=== PATIENT | female | born 1960 | race Caucasian/White ===

== ENCOUNTER 2020-01-31 18:39 | Inpatient (IN) | payer SELFPAY ==
[~2020-01-31] VITALS: Ht 170.2 cm; Wt 91.4 kg
[~2020-01-31 18:39] MED LIST: AMIT25TA9 PO; ASPI-983 PO; CLON0.1T PO; FERR-84 PO; HYDR-34 PO; LISI10TA2 PO; MELO15TA39 PO; NF-ADDXR30 PO; ONDA8TAB13 PO; TRM50T PO; VENL150C98 PO
[2020-01-31] MEDS ORDERED: NS IV 1000 ML 1,000 ML IV STA (18:55)
--- NOTE | 2020-01-31 18:58 | ED Abdominal Pain ---
General Chief Complaint: Abdominal/GI Problems Stated Complaint: NAUSEA/VOMITING,LEFT FLANK/LUQ PAIN History of Present Illness Date Seen by Provider: Jan 31, 2020 Time Seen by Provider: 18:45 Initial Comments This patient is a 15-year-old female who presents to the [facility], nausea vomiting. Patient also states she has had 2 weeks of diarrhea. There have resolved and the vomiting started. Patient states she's had abdominal pain. The entire evaluation. Patient has been seen by her PCP nothing is helping. Medical violation treat as needed. Timing/Duration: Other Severity/Quality: Moderate (2 weeks) Location: [facility], Generalized Abdomen Allergies and Home Medications Allergies Coded Allergies: No Known Drug Allergies (Unverified , 05/12/19) Home Medications Amitriptyline HCl 25 Mg Tablet, 25 MG PO HS, (Reported) Aspirin 81 Mg Tablet.dr, 81 MG PO DAILY, (Reported) Clonidine HCl 0.1 Mg Tablet, 0.3 MG PO HS, (Reported) Dextroamphetamine/Amphetamine 30 Mg Cap.er.24h, 30 MG PO DAILY, (Reported) Ferrous Sulfate 325 Mg Tablet, 325 MG PO HS, (Reported) Hydrocodone Bit/Acetaminophen 1 Ea Tablet, 1 EA PO Q6HR PRN for PAIN-MODERATE Prescribed by: CLAUDIO CAMARGO on 05/13/19923 Lisinopril 10 Mg Tablet, 10 MG PO HS, (Reported) Meloxicam 15 Mg Tablet, 15 MG PO DAILY, (Reported) Ondansetron 8 Mg Tab.rapdis, 8 MG PO Q6H Prescribed by: CLAUDIO CAMARGO on 05/13/19923 Tramadol HCl 50 Mg Tablet, 100 MG PO TID PRN for PAIN-MODERATE, (Reported) Venlafaxine HCl 150 Mg Cap.er.24h, 300 MG PO DAILY, (Reported) HAS BEEN TAKING 2 (150MG) CAPSULES; ONLY WRITTEN FOR 1 DAILY Patient Home Medication List Home Medication List Reviewed: Yes Review of Systems Review of Systems Constitutional: No no symptoms reported; see HPI; No chills, No diaphoresis, No dizziness, No fever, No malaise, No weakness, No weight gain, No weight loss, No other EENTM: No No Symptoms Reported, No See HPI, No Blurred Vision, No Double Vision, No Eye Pain, No Eye Tearing, No Ear Drainage, No Ear Pain, No Mouth Pain, No Mouth Swelling, No Nose Congestion, No Nose Pain, No Throat Pain, No Throat Swelling, No Other Respiratory: Denies No Symptoms Reported, Denies See HPI, Denies Cough, Denies Orthopnea, Denies Shortness of Air, Denies SOA With Exertion, Denies SOA at Rest, Denies Stridor, Denies Wheezing, Denies Other Cardiovascular: Denies No Symptoms Reported, Denies See HPI, Denies Chest Pain, Denies Edema, Denies Irregular Heart Rate, Denies Lightheadedness, Denies Palpitations, Denies Syncope, Denies Other Gastrointestinal: Denies No Symptoms Reported; See HPI; Denies Abdomen Distended; Abdominal Pain; Denies Blood Streaked Stools, Denies Constipated; Diarrhea; Denies Difficulty Swallowing; Nausea; Denies Poor Appetite, Denies Poor Fluid Intake, Denies Rectal Bleeding; Vomiting; Denies Other Genitourinary: Denies No Symptoms Reported, Denies See HPI, Denies Burning, Denies Discharge, Denies Drainage, Denies Frequency, Denies Flank Pain, Denies Hematuria, Denies Incontinence, Denies Pain, Denies Urgency, Denies Other Musculoskeletal: No no symptoms reported, No see HPI, No back pain, No gout, No joint pain, No joint swelling, No muscle pain, No muscle stiffness, No muscle cramps, No muscle twitching, No muscle weakness, No neck pain, No other Skin: No no symptoms reported, No see HPI, No change in color, No change in hair/nails, No dryness, No hx of skin cancer, No lesions, No lumps, No pruritus, No rash, No other All Other Systems Reviewed Negative Unless Noted: Yes Past Wlyulje-Gaccpu-Ouiznk Hx Patient Social History Recent Hopitalizations: No Seasonal Allergies Seasonal Allergies: No Past Medical History Surgeries: Yes Appendectomy Respiratory: No Currently Using CPAP: No Currently Using BIPAP: No Cardiac: Yes Hypertension Neurological: Yes (PT. STATED SHE HAS WHITE MASS ON THE BRAIN) Genitourinary: No Gastrointestinal: No Musculoskeletal: Yes Arthritis Endocrine: No HEENT: No Cancer: No Psychosocial: No Anxiety, Bipolar Integumentary: No Blood Disorders: No Family Medical History Cancer, Hypertension Physical Exam Vital Signs Vital Signs - First Documented 01/31/20 18:54 Temp 36.3 Pulse 60 Resp 16 B/P (MAP) 144/73 (96) Pulse Ox 100 Capillary Refill : Height/Weight/BMI Height: '" Weight: lbs. oz. kg; 31.83 BMI Method: General Appearance: WD/WN, no apparent distress Respiratory: chest non-tender, lungs clear, normal breath sounds, no respiratory distress, no accessory muscle use Cardiovascular: normal peripheral pulses, regular rate, rhythm, no edema, no gallop, no JVD, no murmur Gastrointestinal: normal bowel sounds, non tender, soft, no organomegaly, no pulsatile mass Extremities: normal range of motion, non-tender, normal inspection, no pedal edema, no calf tenderness, normal capillary refill, pelvis stable Back: normal inspection, no CVA tenderness, no vertebral tenderness Skin: normal color, warm/dry Progress/Results/Core Measures Results/Orders Lab Results Laboratory Tests Test 01/31/20 19:00 01/31/20 19:17 Range/Units Urine Color PALE YELLOW Urine Clarity CLEAR Urine pH 6.5 5-9 Urine Specific [place] <=1.005 1.016-1.022 Urine Protein NEGATIVE NEGATIVE Urine Glucose (UA) NEGATIVE NEGATIVE Urine Ketones NEGATIVE NEGATIVE Urine Nitrite NEGATIVE NEGATIVE Urine Bilirubin NEGATIVE NEGATIVE Urine Urobilinogen 0.2 < = 1.0 MG/DL Urine Leukocyte Esterase 1+ H NEGATIVE Urine RBC (Auto) 1+ H NEGATIVE Urine RBC 0-2 /HPF Urine WBC 5-10 H /HPF Urine Squamous Epithelial Cells RARE /HPF Urine Crystals NONE /LPF Urine Bacteria NEGATIVE /HPF Urine Casts NONE /LPF Urine Mucus NEGATIVE /LPF Urine Culture Indicated YES Urine Opiates Screen NEGATIVE NEGATIVE Urine Oxycodone Screen NEGATIVE NEGATIVE Urine Methadone Screen NEGATIVE NEGATIVE Urine Propoxyphene Screen NEGATIVE NEGATIVE Urine Barbiturates Screen NEGATIVE NEGATIVE Ur Tricyclic Antidepressants Screen NEGATIVE NEGATIVE Urine Phencyclidine Screen NEGATIVE NEGATIVE Urine Amphetamines Screen NEGATIVE NEGATIVE Urine Methamphetamines Screen NEGATIVE NEGATIVE Urine Benzodiazepines Screen NEGATIVE NEGATIVE Urine Cocaine Screen NEGATIVE NEGATIVE Urine Cannabinoids Screen NEGATIVE NEGATIVE White Blood Count 22.3 H 4.3-11.0 10^3/uL Red Blood Count 4.31 L 4.35-5.85 10^6/uL Hemoglobin 12.6 11.5-16.0 G/DL Hematocrit 36 35-52 % Mean Corpuscular Volume 85 80-99 FL Mean Corpuscular Hemoglobin 29 25-34 PG Mean Corpuscular Hemoglobin Concent 35 32-36 G/DL Red Cell Distribution Width 13.2 10.0-14.5 % Platelet Count 320 130-400 10^3/uL Mean Platelet Volume 10.1 7.4-10.4 FL Neutrophils (%) (Auto) 86 H 42-75 % Lymphocytes (%) (Auto) 9 L 12-44 % Monocytes (%) (Auto) 4 0-12 % Eosinophils (%) (Auto) 0 0-10 % Basophils (%) (Auto) 1 0-10 % Neutrophils # (Auto) 19.2 H 1.8-7.8 X 10^3 Lymphocytes # (Auto) 1.9 1.0-4.0 X 10^3 Monocytes # (Auto) 1.0 0.0-1.0 X 10^3 Eosinophils # (Auto) 0.0 0.0-0.3 10^3/uL Basophils # (Auto) 0.1 0.0-0.1 10^3/uL Neutrophils % (Manual) 82 % Lymphocytes % (Manual) 6 % Monocytes % (Manual) 6 % Eosinophils % (Manual) 0 % Basophils % (Manual) 1 % Band Neutrophils 5 % Sodium Level 141 135-145 MMOL/L Potassium Level 3.9 3.6-5.0 MMOL/L Chloride Level 107 98-107 MMOL/L Carbon Dioxide Level 16 L 21-32 MMOL/L Anion Gap 18 H 5-14 MMOL/L Blood Urea Nitrogen 23 H 7-18 MG/DL Creatinine 1.47 H 0.60-1.30 MG/DL Estimat Glomerular Filtration Rate 36 BUN/Creatinine Ratio 16 Glucose Level 223 H 70-105 MG/DL Calcium Level 9.5 8.5-10.1 MG/DL Corrected Calcium 9.3 8.5-10.1 MG/DL Total Bilirubin 0.5 0.1-1.0 MG/DL Aspartate Amino Transf (AST/SGOT) 17 5-34 U/L Alanine Aminotransferase (ALT/SGPT) 18 0-55 U/L Alkaline Phosphatase 113 40-136 U/L Total Protein 6.9 6.4-8.2 GM/DL Albumin 4.2 3.2-4.5 GM/DL My Orders Orders - SHELDON EATON MD Abdomen Flat & Upright/Decub (01/31/20 18:55) Comprehensive Metabolic Panel (01/31/20 18:55) Cbc With Automated Diff (01/31/20 18:55) Ed Iv/Invasive Line Start (01/31/20 18:55) Urinalysis (01/31/20 18:55) Ns Iv 1000 Ml (Sodium Chloride 0.9%) (01/31/20 18:55) Ketorolac Injection (Toradol Injection) (01/31/20 19:00) Ondansetron Injection (Zofran Injectio (01/31/20 19:00) Drug Screen Stat (Urine) (01/31/20 18:55) Urine Culture (01/31/20 19:00) Manual Differential (01/31/20 19:17) Medications Given in ED Current Medications Medications Dose Ordered Sig/Ashish Route Start Time Stop Time Status Last Admin Dose Admin Ketorolac Tromethamine 15 mg ONCE ONCE IV 01/31/20 19:00 01/31/20 19:01 DC 01/31/20 19:08 15 MG Ondansetron HCl 4 mg ONCE ONCE IVP 01/31/20 19:00 01/31/20 19:01 DC 01/31/20 19:07 4 MG Vital Signs/I&O 01/31/20 18:54 Temp 36.3 Pulse 60 Resp 16 B/P (MAP) 144/73 (96) Pulse Ox 100 Progress Progress Note : Time: 20:11 Progress Note Patient much improved after IV Toradol and IV Zofran. Patient has had no further vomiting in the emergency Department. Otherwise evaluation is negative. Patient did have elevated white count bleeding is moderate retching and vomiting. Plain x-rays. Me normal nonspecific bowel gas with stool no signs of diarrheal illness. Patient does take tramadol at home patient may continue this home medication for pain. We will prescribe patient diclofenac Zofran and Bentyl patient is to follow up with her PCP in 2-3 days. Patient is to encourage by genia th fluids and advance diet slowly. Departure Impression Primary Impression: Abdominal pain Additional Impression: Nausea and vomiting Disposition: HOME, SELF-CARE Condition: Stable Departure-Patient Inst. Decision time for Depature: 20:12 Referrals: [facility] (PCP) Primary Care Physician PATTIE DILLARD (Family) Primary Care Physician Patient Instructions: Nausea and Vomiting, Adult Add. Discharge Instructions: Patient does take tramadol at home patient may continue this home medication for pain. We will prescribe patient diclofenac Zofran and Bentyl patient is to follow up with her PCP in 2-3 days. Patient is to encourage by mouth fluids and advance diet slowly. All discharge instructions reviewed with patient and/or family. Voiced understanding. Scripts Dicyclomine HCl (Dicyclomine HCl) 20 Mg Tablet 20 MG PO BID for 7 Days, #10 TAB 0 Refills Prov: SHELDON EATON MD 01/31/20 Ondansetron (Ondansetron Odt) 4 Mg Tab.rapdis 4 MG PO BID, #10 TAB 0 Refills Prov: SHELDON EATON MD 01/31/20 Diclofenac Sodium (Diclofenac Sodium) 75 Mg Tablet.dr 75 MG PO BID for 10 Days, #20 TAB 0 Refills Prov: SHELDON EATON MD 01/31/20 SHELDON EATON MD Jan 31, 2020 18:58
[2020-01-31] MEDS ORDERED: KETOROLAC 60 MG/2 ML VIAL IV ONE (19:00)
[2020-01-31] MEDS ORDERED: ONDANSETRON 4 MG/2 ML (SDV) Z0FRAN IVP ONE (19:00)
[2020-01-31 19:21] LABS: BILIRUBIN,URINE NEGATIVE (NEGATIVE); CLARITY,URINE CLEAR; COLOR,URINE PALE YELLOW; GLUCOSE, URINE (UA) NEGATIVE (NEGATIVE); KETONES,URINE NEGATIVE (NEGATIVE); LEUKOCYTE ESTERASE ,URINE 1+ (NEGATIVE); NITRITE,URINE NEGATIVE (NEGATIVE); PH,URINE 6.5 (5-9); PROTEIN,URINE NEGATIVE (NEGATIVE); RBC,URINE 0-2 /HPF
[2020-01-31 19:22] LABS: BACTERIA,URINE NEGATIVE /HPF; SQUAMOUS EPITHELIAL CELL,UR RARE /HPF
[2020-01-31 19:25] LABS: AMPHETAMINE SCREEN, URINE NEGATIVE (NEGATIVE); BARBITURATE SCREEN URINE NEGATIVE (NEGATIVE); BENZODIAZEPINES SCREEN URINE NEGATIVE (NEGATIVE); CANNABINOID SCREEN, URINE NEGATIVE (NEGATIVE); COCAINE SCREEN URINE NEGATIVE (NEGATIVE); METHADONE STAT NEGATIVE (NEGATIVE); METHAMPHETAMINE SCREEN URINE S NEGATIVE (NEGATIVE); OPIATE SCREEN URINE NEGATIVE (NEGATIVE); OXYCODONE STAT NEGATIVE (NEGATIVE); PROPOXYPHENE STAT NEGATIVE (NEGATIVE); TRICYCLIC ANTIDEPRESSANTS SCRE NEGATIVE (NEGATIVE)
--- NOTE | 2020-01-31 19:29 | Diagnostic Imaging Report ---
INDICATION: Abdominal pain, nausea and vomiting. FINDINGS: The lung bases are clear. Bowel gas pattern is nonspecific. There is no free air. There are no abnormal abdominal calcifications. There are surgical clips in the right upper quadrant. IMPRESSION: Nonspecific bowel gas pattern. Dictated by: Dictated on workstation # [id number]
[2020-01-31 19:35] LABS: HEMATOCRIT 36 % (35-52); HEMOGLOBIN 12.6 G/DL (11.5-16.0); MEAN CORPUSCULAR HEMOGLOBIN 29 PG (25-34); MEAN CORPUSCULAR HGB CONC 35 G/DL (32-36); MEAN CORPUSCULAR VOLUME 85 FL (80-99); MEAN PLATELET VOLUME 10.1 FL (7.4-10.4); PLATELET COUNT 320 10^3/uL (130-400); RED CELL DISTRIBUTION WIDTH 13.2 % (10.0-14.5); WHITE BLOOD COUNT 22.3 10^3/uL (4.3-11.0)
--- NOTE | 2020-01-31 19:35 | NUR ---
VERBAL CONSENT BY PT TO SPEAK WITH HER DAUGHTER CONCERNING PT CARE.
[2020-01-31 19:36] LABS: BASOPHILS # (AUTO) 0.1 10^3/uL (0.0-0.1); BASOPHILS % (AUTO) 1 % (0-10); EOSINOPHILS % (AUTO) 0 % (0-10); LYMPHOCYTES # (AUTO) 1.9 X 10^3 (1.0-4.0); LYMPHOCYTES % (AUTO) 9 % (12-44); MONOCYTES % (AUTO) 4 % (0-12); NEUTROPHILS # (AUTO) 19.2 X 10^3 (1.8-7.8); NEUTROPHILS % (AUTO) 86 % (42-75)
--- NOTE | 2020-01-31 19:36 | NUR ---
PT'S DAUGHTER CALLED AND GIVEN UPDATE ON PT CONDITION AND CARE. ANNITA FIORE, DAUGHTER,
[2020-01-31 19:47] LABS: BAND NEUTROPHILS 5 %; BASOPHILS % (MANUAL) 1 %; EOSINOPHILS % (MANUAL) 0 %; LYMPHOCYTES % (MANUAL) 6 %; MONOCYTES % (MANUAL) 6 %; NEUTROPHILS % (MANUAL) 82 %
[2020-01-31 19:50] LABS: ALBUMIN 4.2 GM/DL (3.2-4.5); BILIRUBIN,TOTAL 0.5 MG/DL (0.1-1.0); CALCIUM 9.5 MG/DL (8.5-10.1); CREATININE SERUM 1.47 MG/DL (0.60-1.30); POTASSIUM 3.9 MMOL/L (3.6-5.0); TOTAL PROTEIN 6.9 GM/DL (6.4-8.2)
[2020-01-31] MEDS ORDERED: ONDA4TAB11 PO (20:14)
[2020-01-31] MEDS ORDERED: DICL75TA2 PO (20:14)
[2020-01-31] MEDS ORDERED: DICY20TA10 PO (20:14)
--- NOTE | 2020-01-31 20:24 | NUR ---
PT'S DAUGHTER CONTACTED AND INFORMED THAT PT IS BEING DISCHARGED. DAUGHTER STATES THAT SHE WILL CONTACT FAMILY TO TRANSPORT PT HOME.
--- OUTSIDE RECORDS SUMMARY | 2020-01-31 20:42 | XMS REPORT ---
Author Author Evita DILLARD Organization [facility] Address [address] [place] [address] Care Team Providers Care Trial Examiner Name Role Phone PATTIE DILLARD Unavailable PROBLEMS Type Condition ICD9-CM Code [id number] Code Onset Dates Condition S tatus SNOMED Code Problem Depressed mood F32.9 Active 67591 9004 Problem Hiatal hernia K44.9 Active 554003 09 Problem Lumbar degenerative disc disease M51.36 Active 82951954 Problem Adult attention deficit disorder F98.8 Active 173641110 Problem Anxiety, generalized F41.1 Active 73970654 Problem Cyst of right kidney N28.1 Active 840697661 Problem Mild scoliosis M41.9 Active 30068 2003 ALLERGIES No Information ENCOUNTERS Encounter Location Date Diagnosis [facility] [address] [facility] [id number] [place] [address] 14 Aug, 2019 Drug rash L27.0 [place] [address] [place] [address] 13 Aug, 2019 Drug rash L27.0 [facility] [address] [facility] [place] [address] Jul, Drug rash L27.0 [place] [address] [place] [address] Jun, Drug rash L27.0 [facility] [address] [id number] [place] [address] Jun, [facility] [address] [id number] [place] [address] 09 Jun, 2019 Medication monitoring encounter Z51.81 [facility] [address] [facility] [id number] [place] [address] Jun, Medication monitoring encounter Z51.81 [facility] [address] [id number] [place] [address] Jun, Adult attention deficit disorder F98.8 ; Depressed mood F32.9 ; Breast cancer screening Z12.39 and Anxiety, generalized F41.1 [facility] [place] [address] [place] [address] May, Drug rash L27.0 [place] [address] [address] Apr, [facility] [place] [address] [id number] [place] [address] Apr, Drug rash L27.0 [facility] [place] [address] [facility] [id number] [place] [address] Apr, [facility] [address] [place] [id number] [place] [address] Mar, Drug rash L27.0 [facility] [place] [address] [id number] [place] [address] Feb, Drug rash L27.0 [facility] [address] [id number] [place] [address] Feb, [facility] [place] [address] [address] [id number] [place] [address] Feb, [facility] [place] [address] [address] [id number] [place] [address] Jan, Drug rash L27.0 [facility] [place] [address] [address] [id number] [place] [address] Jan, [facility] [place] [address] [facility] [id number] [place] [address] Dec, Drug rash L27.0 [facility] [address] [address] Dec, [facility] [place] [address] [id number] [place] [address] Dec, Medication monitoring encounter Z51.81 [facility] [place] [address] [address] [facility] [id number] [place] [address] November, Drug rash L27.0 [facility] [place] [address] [id number] [place] [address] November, [facility] [place] [address] [id number] [place] [address] November, Drug rash L27.0 [facility] [place] [address] [id number] [place] [address] Oct, [facility] [place] [address] [id number] [place] [address] Oct, [facility] [place] [address] [place] [id number] [place] [address] Oct, [facility] [place] [address] [id number] [place] [address] Oct, Drug rash L27.0 [facility] [place] [address] [place] [id number] [place] [address] Oct, Drug rash L27.0 [facility] [place] [address] [place] [id number] [place] [address] Sep, Depressed mood F32.9 [facility] [place] [id number] [place], [place] [address]ER [id number] [place] [address] Sep, Drug rash L27.0 [facility] [place] [address] [address] [id number] [place] [address] Aug, Medication monitoring encounter Z51.81 a nd Depressed mood F32.9 [facility] [place] [address] [place] [id number] [place] [address] Aug, [facility] [place] [address] [address] [id number] [place] [address] Jul, [facility] [place] [address] [address] [id number] [place] [address] Jul, Medication monitoring encounter Z51.81 ; Drug rash L27.0 ; Adult attention deficit disorder F98.8 ; Hemiplegic migraine with status migrainosus, not intractable G43.401 ; Spinal stenosis, unspecified spinal region M48.00 ; Depressed mood F32.9 and Anxiety, generalized F41.1 [facility] [address] [facility] [id number] [place] [address] Jul, [place] [id number] [facility] [id number] [place] [address] Jul, [facility] [address] [facility] [id number] [place] [address] Jul, IMMUNIZATIONS No Known Immunizations SOCIAL HISTORY Never Assessed REASON FOR VISIT refills PLAN OF CARE VITAL SIGNS MEDICATIONS Medication Instructions Dosage Frequency Start Date End Date Duration S tatus HydrOXYzine HCl 25 MG Orally every 8 hrs 1 tablet as needed 8h Jul, 30 day(s) Active Amitriptyline HCl 25 MG Orally Once a day 1 tablet 24h 30 day(s) Active RESULTS No Results PROCEDURES No Known procedures INSTRUCTIONS MEDICATIONS ADMINISTERED No Known Medications MEDICAL (GENERAL) HISTORY Type Description Date Medical History Olecranon Fracture Medical History Mood Disorder Medical History Poor Concentration Medical History Lipoma of abdominal wall Medical History anxiety Medical History Right sided chest wall pain Medical History reactive arthritis Surgical History appendectomy
--- OUTSIDE RECORDS SUMMARY | 2020-01-31 20:43 | XMS REPORT | Continuity of Care Document ---
Author Organization Unknown Address Unknown Phone Unavailable Allergies Active Description Code Type Severity Reaction Onset Reported/Identified Relationship to Patient Clinical Status Yes No Known Drug Allergies [id number] Drug Allergy Unknown N/A 05/12/2019 Medications There is no data. Problems Date Dx Coded Attending Type Code Diagnosis Diagnosed By 05/13/2019 PAM POWERS MD, Ot D72.829 ELEVATED WHITE BLOOD CELL COUNT, UNSPECI 05/13/2019 PAM POWERS MD, Ot F31. 9 BIPOLAR DISORDER, UNSPECIFIED 05/13/2019 PAM POWERS MD, Ot F41. 9 ANXIETY DISORDER, UNSPECIFIED 05/13/2019 PAM POWERS MD, Ot I10 ESSENTIAL (PRIMARY) HYPERTENSION 05/13/2019 PAM POWERS MD, Ot K80. 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 90 UNSPECIFIED OSTEOARTHRITIS, UNSPECIFIED 05/13/2019 PAM POWERS MD, Ot R94. 5 ABNORMAL RESULTS OF LIVER FUNCTION STUDI 05/13/2019 PAM POWERS MD, Ot Z80. 0 FAMILY HISTORY OF MALIGNANT NEOPLASM OF 05/13/2019 PAM POWERS MD, Ot Z80. 3 FAMILY HISTORY OF MALIGNANT NEOPLASM OF 05/13/2019 PAM POWERS MD, Ot Z82. 49 FAMILY HX OF ISCHEM HEART DIS AND OTH DI 05/13/2019 PAM POWERS MD, Ot Z90. 89 ACQUIRED ABSENCE OF OTHER ORGANS 05/20/2019 PAM POWERS MD, Ot D72.829 ELEVATED WHITE BLOOD CELL COUNT, UNSPECI 05/20/2019 PAM POWERS MD, Ot F31. 9 BIPOLAR DISORDER, UNSPECIFIED 05/20/2019 PAM POWERS MD, Ot F41. 9 ANXIETY DISORDER, UNSPECIFIED 05/20/2019 PAM POWERS MD, Ot I10 ESSENTIAL (PRIMARY) HYPERTENSION 05/20/2019 PAM POWERS MD, Ot K80. 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 90 UNSPECIFIED OSTEOARTHRITIS, UNSPECIFIED 05/20/2019 PAM POWERS MD Ot R94. 5 ABNORMAL RESULTS OF LIVER FUNCTION STUDI 05/20/2019 PAM POWERS MD, Ot Z80. 0 FAMILY HISTORY OF MALIGNANT NEOPLASM OF 05/20/2019 PAM POWERS MD, Ot Z80. 3 FAMILY HISTORY OF MALIGNANT NEOPLASM OF 05/20/2019 PAM POWERS MD, Ot Z82. 49 FAMILY HX OF ISCHEM HEART DIS AND OTH DI 05/20/2019 PAM POWERS MD, Ot Z90. 89 ACQUIRED ABSENCE OF OTHER ORGANS 05/20/2019 PAM POWERS MD, Ot D72.829 ELEVATED WHITE BLOOD CELL COUNT, UNSPECI 05/20/2019 PAM POWERS MD, Ot F31. 9 BIPOLAR DISORDER, UNSPECIFIED 05/20/2019 PAM POWERS MD, Ot F41. 9 ANXIETY DISORDER, UNSPECIFIED 05/20/2019 PAM POWERS MD Ot I10 ESSENTIAL (PRIMARY) HYPERTENSION 05/20/2019 PAM POWERS MD, Ot K80. 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 90 UNSPECIFIED OSTEOARTHRITIS, UNSPECIFIED 05/20/2019 PAM POWERS MD Ot R94. 5 ABNORMAL RESULTS OF LIVER FUNCTION STUDI 05/20/2019 PAM POWERS MD, Ot Z80. 0 FAMILY HISTORY OF MALIGNANT NEOPLASM OF 05/20/2019 PAM POWERS MD, Ot Z80. 3 FAMILY HISTORY OF MALIGNANT NEOPLASM OF 05/20/2019 PAM POWERS MD, Ot Z82. 49 FAMILY HX OF ISCHEM HEART DIS AND OTH DI 05/20/2019 PAM POWERS MD, Ot Z90. 89 ACQUIRED ABSENCE OF OTHER ORGANS Procedures There is no data. Results Test Result Range Comprehensive metabolic panel - 05/12/19 03:31 Serum or plasma sodium measurement (moles/volume) 138 mmol/L 135-145 Serum or plasma potassium measurement (moles/volume) 3.9 mmol/L 3.6-5.0 Serum or plasma chloride measurement (moles/volume) 102 mmol/L 98-107 Carbon dioxide 19 mmol/L 21-32 Serum or plasma anion gap determination (moles/volume) 17 mmol/L 5-14 Serum or plasma urea nitrogen measurement (mass/volume ) 21 mg/dL 7-18 Serum or plasma creatinine measurement (mass/volume) 0.72 mg/dL 0.60-1.30 Serum or plasma urea nitrogen/creatinine mass ratio 29 NRG Serum or plasma creatinine measurement w ith calculation of estimated glomerular filtration rate > NRG Serum or plasma glucose measurement (mass/volume) 221 mg/dL 70-105 Serum or plasma calcium measurement (mass/volume) 9.6 mg/dL 8.5-10.1 Serum or plasma total bilirubin measurement (mass/volu me) 0.6 mg/dL 0.1-1.0 Serum or plasma alkaline phosphatase ramon surement (enzymatic activity/volume) 220 U/L 40-136 Serum or plasma aspartate aminotransfera se measurement (enzymatic activity/volume) 159 U/L 5-34 Serum or plasma alanine aminotransferase measurement (enzymatic activity/volume) 344 U/L 0-55 Serum or plasma protein measurement (mass/volume) 7.5 g/dL 6.4-8.2 Serum or plasma albumin measurement (mass/volume) 4.2 g/dL 3.2-4.5 CALCIUM CORRECTED 9.4 mg/dL 8.5-10.1 Lipase - 05/12/19 03:31 Lipase 14 U/L 8-78 Serum or plasma amylase measurement (enz ymatic activity/volume) - 05/12/19 03:31 Serum or plasma amylase measurement (enzymatic activit y/volume) 48 U/L 25-125 Serum or plasma ethanol measurement (mas s/volume) - 05/12/19 03:31 Serum or plasma ethanol measurement (mass/volume) < mg/dL <10 Complete blood count (CBC) with automate d white blood cell (WBC) differential - 05/12/19 03:31 Blood leukocytes automated count (number/volume) 15.4 10*3/uL 4.3-11.0 Blood erythrocytes automated count (number/volume) 4.26 10*6/uL 4.35-5.85 Venous blood hemoglobin measurement (mass/volume) 12.7 g/dL 11.5-16.0 Blood hematocrit (volume fraction) 37 % 35-52 Automated erythrocyte mean corpuscular volume 86 [ foz_us] 80-99 Automated erythrocyte mean corpuscular h emoglobin (mass per erythrocyte) 30 pg 25-34 Automated erythrocyte mean corpuscular h emoglobin concentration measurement (mass/volume) 35 g/dL 32-36 Automated erythrocyte distribution width ratio 12. 9 % 10.0- 14.5 Automated blood platelet count (count/volume) 354 10*3/uL 130-400 Automated blood platelet mean volume measurement 10.2 [foz_us] 7.4-10.4 Automated blood neutrophils/100 leukocytes 86 % 42-75 Automated blood lymphocytes/100 leukocytes 10 % 12-44 Blood monocytes/100 leukocytes 3 % 0-12 Automated blood eosinophils/100 leukocytes 0 % 0-10 Automated blood basophils/100 leukocytes 1 % 0-10 Blood neutrophils automated count (number/volume) 13.2 10*3 1.8-7.8 Blood lymphocytes automated count (number/volume) 1.6 10*3 1.0-4.0 Blood monocytes automated count (number/volume) 0. 5 10*3 0.0-1.0 Automated eosinophil count 0.0 10*3/uL 0 .0-0.3 Automated blood basophil count (count/volume) 0.1 10*3/uL 0.0-0.1 Manual absolute plasma cell count - 04/21 10/06 03:31 Blood monocytes/100 leukocytes 5 % NRG Manual blood segmented neutrophils/100 leukocytes 78 % NRG Blood band neutrophils/100 leukocytes 6 % NRG Manual blood lymphocytes/100 leukocytes 11 % NRG Blood erythrocyte morphology finding identification NORMAL NRG PT panel in platelet poor plasma by coag ulation assay - 05/12/19 10:53 Prothrombin time (PT) in platelet poor plasma by coagu lation assay 13.0 s 12.2-14.7 INR in platelet poor plasma or blood by coagulation as say 0.9 0.8-1.4 Ammonia - 05/12/19 10:53 Ammonia 72 umol/L 11-32 Acute hepatitis panel - 05/12/19 10:53 HEPATITIS A ANTIBODY IGM Non-Reactive N on-Reactive HEPATITIS B CORE RD IGM Non-Reactive N on-Reactive Confirmatory quantitative serum or plasm a hepatitis B virus surface antigen measurement Non-Reactive Non-Reactive Serum hepatitis C virus antibody detection Non-[place] ctive Non-Reactive Complete blood count (CBC) with automate d white blood cell (WBC) differential - 05/13/19 05:55 Blood leukocytes automated count (number/volume) 16.5 10*3/uL 4.3-11.0 Blood erythrocytes automated count (number/volume) 4.10 10*6/uL 4.35-5.85 Venous blood hemoglobin measurement (mass/volume) 11.9 g/dL 11.5-16.0 Blood hematocrit (volume fraction) 36 % 35-52 Automated erythrocyte mean corpuscular volume 88 [ foz_us] 80-99 Automated erythrocyte mean corpuscular h emoglobin (mass per erythrocyte) 29 pg 25-34 Automated erythrocyte mean corpuscular h emoglobin concentration measurement (mass/volume) 33 g/dL 32-36 Automated erythrocyte distribution width ratio 14. 0 % 10.0- 14.5 Automated blood platelet count (count/volume) 349 10*3/uL 130-400 Automated blood platelet mean volume measurement 10.0 [foz_us] 7.4-10.4 Automated blood neutrophils/100 leukocytes 75 % 42-75 Automated blood lymphocytes/100 leukocytes 17 % 12-44 Blood monocytes/100 leukocytes 8 % 0-12 Automated blood eosinophils/100 leukocytes 0 % 0-10 Automated blood basophils/100 leukocytes 0 % 0-10 Blood neutrophils automated count (number/volume) 12.4 10*3 1.8-7.8 Blood lymphocytes automated count (number/volume) 2.9 10*3 1.0-4.0 Blood monocytes automated count (number/volume) 1. 3 10*3 0.0-1.0 Automated eosinophil count 0.0 10*3/uL 0 .0-0.3 Automated blood basophil count (count/volume) 0.0 10*3/uL 0.0-0.1 Comprehensive metabolic panel - 05/13/19 05:55 Serum or plasma sodium measurement (moles/volume) 139 mmol/L 135-145 Serum or plasma potassium measurement (moles/volume) 4.0 mmol/L 3.6-5.0 Serum or plasma chloride measurement (moles/volume) 104 mmol/L 98-107 Carbon dioxide 22 mmol/L 21-32 Serum or plasma anion gap determination (moles/volume) 13 mmol/L 5-14 Serum or plasma urea nitrogen measurement (mass/volume ) 15 mg/dL 7-18 Serum or plasma creatinine measurement (mass/volume) 0.91 mg/dL 0.60-1.30 Serum or plasma urea nitrogen/creatinine mass ratio 16 NRG Serum or plasma creatinine measurement w ith calculation of estimated glomerular filtration rate > NRG Serum or plasma glucose measurement (mass/volume) 127 mg/dL 70-105 Serum or plasma calcium measurement (mass/volume) 9.0 mg/dL 8.5-10.1 Serum or plasma total bilirubin measurement (mass/volu me) 0.4 mg/dL 0.1-1.0 Serum or plasma alkaline phosphatase ramon surement (enzymatic activity/volume) 163 U/L 40-136 Serum or plasma aspartate aminotransfera se measurement (enzymatic activity/volume) 79 U/L 5-34 Serum or plasma alanine aminotransferase measurement (enzymatic activity/volume) 238 U/L 0-55 Serum or plasma protein measurement (mass/volume) 7.1 g/dL 6.4-8.2 Serum or plasma albumin measurement (mass/volume) 4.0 g/dL 3.2-4.5 CALCIUM CORRECTED 9.0 mg/dL 8.5-10.1 Ammonia - 05/13/19 05:55 Ammonia 35 umol/L 11-32 PDM - 09 PANEL (PROFILE 1) - 11/30/19 12 :47 Prescribed Drug 1 Adderall(TM) NRG Creatinine 243.2 mg/dL > or = 20.0 pH 5.3 4.5-9.0 Oxidant NEGATIVE mcg/mL <200 Amphetamines POSITIVE ng/mL <500 Benzodiazepines POSITIVE ng/mL <100 Marijuana Metabolite NEGATIVE ng/mL <20 medMATCH Marijuana Metab CONSISTENT NRG Cocaine Metabolite NEGATIVE ng/mL <150 medMATCH Cocaine Metab CONSISTENT NRG Opiates NEGATIVE CONFIRMED ng/mL <100 Oxycodone NEGATIVE ng/mL <100 medMATCH Oxycodone CONSISTENT NRG COMMENT NRG Amphetamine >02733 ng/mL <250 medMATCH Amphetamine CONSISTENT NRG Methamphetamine NEGATIVE ng/mL <250 medMATCH Methamphetamine CONSISTENT NRG Alphahydroxyalprazolam 583 ng/mL <25 medMATCH aOH alprazolam INCONSISTENT NR G Alphahydroxymidazolam NEGATIVE ng/mL < 50 medMATCH aOH midazolam CONSISTENT NRG Alphahydroxytriazolam NEGATIVE ng/mL < 50 medMATCH aOH triazolam CONSISTENT NRG Aminoclonazepam NEGATIVE ng/mL <25 medMATCH Aminoclonazepam CONSISTENT NRG Hydroxyethylflurazepam NEGATIVE ng/mL <50 medMATCH OH,Et flurazepam CONSISTENT NR G Lorazepam NEGATIVE ng/mL <50 medMATCH Lorazepam CONSISTENT NRG Nordiazepam NEGATIVE ng/mL <50 medMATCH Nordiazepam CONSISTENT NRG Oxazepam NEGATIVE ng/mL <50 medMATCH Oxazepam CONSISTENT NRG Temazepam NEGATIVE ng/mL <50 medMATCH Temazepam CONSISTENT NRG Codeine NEGATIVE ng/mL <50 medMATCH Codeine CONSISTENT NRG Hydrocodone NEGATIVE ng/mL <50 medMATCH Hydrocodone CONSISTENT NRG Hydromorphone NEGATIVE ng/mL <50 medMATCH Hydromorphone CONSISTENT NRG Morphine NEGATIVE ng/mL <50 medMATCH Morphine CONSISTENT NRG Norhydrocodone NEGATIVE ng/mL <50 medMATCH Norhydrocodone CONSISTENT NRG Barbiturates NEGATIVE ng/mL <300 medMATCH Barbiturates CONSISTENT NRG Methadone Metabolite NEGATIVE ng/mL <100 medMATCH Methadone Metab CONSISTENT NRG Phencyclidine NEGATIVE ng/mL <25 medMATCH Phencyclidine CONSISTENT NRG PDM - 09 PANEL (PROFILE 1) - 12/21/19 11 :19 Prescribed Drug 1 Tramadol NRG Creatinine 282.2 mg/dL > or = 20.0 pH 5.0 4.5-9.0 Oxidant NEGATIVE mcg/mL <200 Amphetamines POSITIVE ng/mL <500 Benzodiazepines NEGATIVE ng/mL <100 medMATCH Benzodiazepines CONSISTENT NRG Marijuana Metabolite NEGATIVE ng/mL <20 medMATCH Marijuana Metab CONSISTENT NRG Cocaine Metabolite NEGATIVE ng/mL <150 medMATCH Cocaine Metab CONSISTENT NRG Opiates NEGATIVE CONFIRMED ng/mL <100 Oxycodone NEGATIVE ng/mL <100 medMATCH Oxycodone CONSISTENT NRG COMMENT NRG Amphetamine >80519 ng/mL <250 medMATCH Amphetamine CONSISTENT NRG Methamphetamine NEGATIVE ng/mL <250 medMATCH Methamphetamine CONSISTENT NRG Codeine NEGATIVE ng/mL <50 medMATCH Codeine CONSISTENT NRG Hydrocodone NEGATIVE ng/mL <50 medMATCH Hydrocodone CONSISTENT NRG Hydromorphone NEGATIVE ng/mL <50 medMATCH Hydromorphone CONSISTENT NRG Morphine NEGATIVE ng/mL <50 medMATCH Morphine CONSISTENT NRG Norhydrocodone NEGATIVE ng/mL <50 medMATCH Norhydrocodone CONSISTENT NRG Prescribed Drug 2 Adderall(TM) NRG Prescribed Drug 4 Ultram(TM) NRG Barbiturates NEGATIVE ng/mL <300 medMATCH Barbiturates CONSISTENT NRG Methadone Metabolite NEGATIVE ng/mL <100 medMATCH Methadone Metab CONSISTENT NRG Phencyclidine NEGATIVE ng/mL <25 medMATCH Phencyclidine CONSISTENT NRG Complete urinalysis with reflex to cultu re - 01/31/20 19:00 Urine color determination PALE YELLOW N RG Urine clarity determination CLEAR NR G Urine pH measurement by test strip 6.5 5-9 Specific gravity of urine by test strip <= 1.016-1.022 Urine protein assay by test strip, semi-quantitative NEGATIVE NEGATIVE Urine glucose detection by automated test strip NE GATIVE NEGATIVE Erythrocytes detection in urine sediment by light micr oscopy 1+ NEGATIVE Urine ketones detection by automated test strip NE GATIVE NEGATIVE Urine nitrite detection by test strip NEGATIVE NEGATIVE Urine total bilirubin detection by test strip NEGA TIVE NEGATIVE Urine urobilinogen measurement by automated test strip (mass/volume) 0.2 mg/dL < = 1.0 Urine leukocyte esterase detection by dipstick 1+ NEGATIVE Automated urine sediment erythrocyte cou nt by microscopy (number/high power field) [HPF] NRG Automated urine sediment leukocyte count by microscopy (number/high power field) [HPF] NRG Bacteria detection in urine sediment by light microsco py NEGATIVE NRG Squamous epithelial cells detection in u rine sediment by light microscopy RARE NRG Crystals detection in urine sediment by light microsco py NONE NRG Casts detection in urine sediment by light microscopy NONE NRG Mucus detection in urine sediment by light microscopy NEGATIVE NRG Complete urinalysis with reflex to culture YES NRG Urine drug screening test - 01/31/20 19: 00 Urine phencyclidine detection by screening method NEGATIVE NEGATIVE Urine benzodiazepines detection by screening method NEGATIVE NEGATIVE Urine cocaine detection NEGATIVE NEGATI VE Urine amphetamines detection by screening method N EGATIVE NEGATIVE Urine methamphetamine detection by screening method NEGATIVE NEGATIVE Urine cannabinoids detection by screening method N EGATIVE NEGATIVE Urine opiates detection by screening method NEGATI VE NEGATIVE Urine barbiturates detection NEGATIVE N EGATIVE Screening urine tricyclic antidepressants detection NEGATIVE NEGATIVE Urine methadone detection by screening method NEGA TIVE NEGATIVE Urine oxycodone detection NEGATIVE NEGA TIVE Urine propoxyphene detection NEGATIVE N EGATIVE Complete blood count (CBC) with automate d white blood cell (WBC) differential - 01/31/20 19:17 Blood leukocytes automated count (number/volume) 22.3 10*3/uL 4.3-11.0 Blood erythrocytes automated count (number/volume) 4.31 10*6/uL 4.35-5.85 Venous blood hemoglobin measurement (mass/volume) 12.6 g/dL 11.5-16.0 Blood hematocrit (volume fraction) 36 % 35-52 Automated erythrocyte mean corpuscular volume 85 [ foz_us] 80-99 Automated erythrocyte mean corpuscular h emoglobin (mass per erythrocyte) 29 pg 25-34 Automated erythrocyte mean corpuscular h emoglobin concentration measurement (mass/volume) 35 g/dL 32-36 Automated erythrocyte distribution width ratio 13. 2 % 10.0- 14.5 Automated blood platelet count (count/volume) 320 10*3/uL 130-400 Automated blood platelet mean volume measurement 10.1 [foz_us] 7.4-10.4 Automated blood neutrophils/100 leukocytes 86 % 42-75 Automated blood lymphocytes/100 leukocytes 9 % 12-44 Blood monocytes/100 leukocytes 4 % 0-12 Automated blood eosinophils/100 leukocytes 0 % 0-10 Automated blood basophils/100 leukocytes 1 % 0-10 Blood neutrophils automated count (number/volume) 19.2 10*3 1.8-7.8 Blood lymphocytes automated count (number/volume) 1.9 10*3 1.0-4.0 Blood monocytes automated count (number/volume) 1. 0 10*3 0.0-1.0 Automated eosinophil count 0.0 10*3/uL 0 .0-0.3 Automated blood basophil count (count/volume) 0.1 10*3/uL 0.0-0.1 Manual absolute plasma cell count - 01/18 10/07 19:17 Blood monocytes/100 leukocytes 6 % NRG Manual blood segmented neutrophils/100 leukocytes 82 % NRG Blood band neutrophils/100 leukocytes 5 % NRG Manual blood lymphocytes/100 leukocytes 6 % NRG Manual eosinophils/100 leukocytes in nose 0 % NRG Manual blood basophils/100 leukocytes 1 % NRG Comprehensive metabolic panel - 01/31/20 19:17 Serum or plasma sodium measurement (moles/volume) 141 mmol/L 135-145 Serum or plasma potassium measurement (moles/volume) 3.9 mmol/L 3.6-5.0 Serum or plasma chloride measurement (moles/volume) 107 mmol/L 98-107 Carbon dioxide 16 mmol/L 21-32 Serum or plasma anion gap determination (moles/volume) 18 mmol/L 5-14 Serum or plasma urea nitrogen measurement (mass/volume ) 23 mg/dL 7-18 Serum or plasma creatinine measurement (mass/volume) 1.47 mg/dL 0.60-1.30 Serum or plasma urea nitrogen/creatinine mass ratio 16 NRG Serum or plasma creatinine measurement w ith calculation of estimated glomerular filtration rate 36 NRG Serum or plasma glucose measurement (mass/volume) 223 mg/dL 70-105 Serum or plasma calcium measurement (mass/volume) 9.5 mg/dL 8.5-10.1 Serum or plasma total bilirubin measurement (mass/volu me) 0.5 mg/dL 0.1-1.0 Serum or plasma alkaline phosphatase ramon surement (enzymatic activity/volume) 113 U/L 40-136 Serum or plasma aspartate aminotransfera se measurement (enzymatic activity/volume) 17 U/L 5-34 Serum or plasma alanine aminotransferase measurement (enzymatic activity/volume) 18 U/L 0-55 Serum or plasma protein measurement (mass/volume) 6.9 g/dL 6.4-8.2 Serum or plasma albumin measurement (mass/volume) 4.2 g/dL 3.2-4.5 CALCIUM CORRECTED 9.3 mg/dL 8.5-10.1 Encounters ACCT No. Visit Date/Time Discharge Status Pt. Type Provider Facility Loc./Unit Complaint [id number] 12/21/2019 11:00:00 12/21/2019 23:59: 59 [id number]/21/2019 11:00:00 Document Registration [id number] 11/30/2019 11:40:00 Document Registration [id number] 05/12/2019 08:43:00 019 13:06:00 DIS Outpatient GIO FOWLER, APM Lara [facility] SDC ABD PAIN N/V TRANSA MINITIS [id number] 01/31/2020 18:41:[address] Emergency ANGELITO FOWLER, SHELDON Connell [facility] ER FS NAUSEA/VOMITING,LEFT FLANK/L UQ PAIN
[2020-01-31] MEDS ORDERED: HYDROcodone/APAP 5 MG/325 MG (LORTAB) TAB PO ONE (20:45)
--- NOTE | 2020-01-31 21:14 | Diagnostic Imaging Report ---
PROCEDURE: CT urinary tract, rule out kidney stone. TECHNIQUE: Multiple contiguous axial images were obtained through the abdomen and pelvis without the use of intravenous contrast. Auto Exposure Controls were utilized during the CT exam to meet ALARA standards for radiation dose reduction. INDICATION: Abdominal pain, nausea and vomiting. FINDINGS: There is a moderately large hiatal hernia. The lung bases are clear. The heart size is normal. The liver is normal in size and without focal lesions. The gallbladder is surgically absent. There is no biliary ductal dilatation. The spleen is normal. The pancreas and adrenal glands are unremarkable. There is a cyst in the right kidney. There is left hydronephrosis and hydroureter secondary to a 2 mm stone in the proximal ureter just below the left UPJ. There is surrounding inflammatory change. A superimposed pyelonephritis certainly cannot be excluded. The aorta is nonaneurysmal. The bowel gas pattern is nonspecific. There is no free air. The bladder is normal. Uterus is normal. There is no pelvic mass, adenopathy or free fluid. There are degenerative changes in the spine. IMPRESSION: 1. Left hydronephrosis and hydroureter secondary to a 2 mm stone in the proximal ureter just below the left UPJ. Additionally, there are inflammatory changes about the left kidney. A superimposed pyelonephritis cannot be excluded. Recommend clinical correlation. 2. Small right renal cyst. 3. Moderate hiatal hernia. Dictated by: Dictated on workstation # [id number]
[2020-01-31] MEDS ORDERED: NS IV 1000 ML 1,000 ML IV SCH (21:30)
[2020-01-31] MEDS ORDERED: cefTRIAXone FOR IV USE 1,000 MG in WATER (STERILE) FOR INJECTION 10 ML IV ONE (21:30)
[2020-01-31 23:17] VITALS: BP 163/91
[2020-01-31] MEDS ORDERED: ONDANSETRON 4 MG/2 ML (SDV) Z0FRAN ONE (23:41)
[2020-01-31] MEDS ORDERED: morphine INJ 4 MG/ML 1 ML (VIAL/SYRINGE) ONE (23:41)
[2020-01-31] MEDS ORDERED: morphine INJ 4 MG/ML 1 ML (VIAL/SYRINGE) IV PRN (23:45)
[2020-01-31] MEDS ORDERED: PROMETHAZINE INJ 25 MG/ML (PHENERGAN) AMP ONE (23:51)
[2020-01-31] MEDS: ONDANSETRON 4 MG/2 ML (SDV) Z0FRAN IV PRN (23:53)
[2020-01-31] MEDS: PROMETHAZINE INJ 25 MG/ML (PHENERGAN) AMP IM PRN (23:57)
--- OUTSIDE RECORDS SUMMARY | 2020-01-31 23:58 | XMS REPORT | Continuity of Care Document ---
Author Organization Unknown Address Unknown Phone Unavailable Allergies Active Description Code Type Severity Reaction Onset Reported/Identified Relationship to Patient Clinical Status Yes No Known Drug Allergies [id number] Drug Allergy Unknown N/A 05/12/2019 Medications There [...] Non-Reactive Serum hepatitis C virus antibody detection Non-[place] ctive Non-Reactive Complete blood count (CBC) with [...] medMATCH Oxycodone CONSISTENT NRG COMMENT NRG Amphetamine >61865 ng/mL <250 medMATCH Amphetamine CONSISTENT NRG Methamphetamine [...] medMATCH Oxycodone CONSISTENT NRG COMMENT NRG Amphetamine >56295 ng/mL <250 medMATCH Amphetamine CONSISTENT NRG Methamphetamine [...] TIVE Urine propoxyphene detection NEGATIVE N EGATIVE Lipase - 01/31/20 19:12 Lipase 15 U/L 8-78 Complete blood count (CBC) with automate d [...] NRG Manual blood basophils/100 leukocytes 1 % NR Comprehensive metabolic panel - 01/31/20 19:17 Serum [...] Status Pt. Type Provider Facility Loc./Unit Complaint [id number] 12/21/2019 11:00:00 12/21/2019 23:59: 59 CLS Outpatient Willa Gonzalez [id number] 12/21/2019 11:00:00 Document Registration [id number] 11/30/2019 11:40:00 Document Registration [id number] 05/12/2019 08:43:00 13:06:00 DIS Outpatient GIO FOWLER, PAM [facility] SDC ABD PAIN N/V TRANSA MINITIS [id number] 01/31/2020 23:17:[address] Inpatient CLAUDIO CAMARGO DO [facility] CSD NAUSEA/VOMITING,LEFT FLANK/L UQ PAIN
[2020-02-01] MEDS ORDERED: polyethylene glycoL POWDER 17 GM (MIRALAX) PACK PO PRN (00:45)
[2020-02-01] MEDS ORDERED: guaiFENesin/DM (ROBITUSSIN DM) 10 ML UDC PO PRN (00:45)
[2020-02-01] MEDS ORDERED: DOCUSATE SODIUM 100 MG (COLACE) CAP PO PRN (00:45)
[2020-02-01] MEDS ORDERED: MELATONIN 10 MG TABLET PO PRN (00:45)
[2020-02-01] MEDS: NS IV 1000 ML 1,000 ML IV SCH ×4 (00:49→17:19)
[2020-02-01 03:35] LABS: BASOPHILS % (AUTO) 0 % (0-10); EOSINOPHILS % (AUTO) 0 % (0-10); HEMATOCRIT 34 % (35-52); HEMOGLOBIN 11.3 G/DL (11.5-16.0); LYMPHOCYTES # (AUTO) 1.5 X 10^3 (1.0-4.0); LYMPHOCYTES % (AUTO) 9 % (12-44); MEAN CORPUSCULAR HEMOGLOBIN 29 PG (25-34); MEAN CORPUSCULAR HGB CONC 33 G/DL (32-36); MEAN CORPUSCULAR VOLUME 88 FL (80-99); MEAN PLATELET VOLUME 10.3 FL (7.4-10.4); MONOCYTES # (AUTO) 0.7 X 10^3 (0.0-1.0); MONOCYTES % (AUTO) 4 % (0-12); NEUTROPHILS % (AUTO) 86 % (42-75); PLATELET COUNT 264 10^3/uL (130-400); RED CELL DISTRIBUTION WIDTH 13.7 % (10.0-14.5); WHITE BLOOD COUNT 16.2 10^3/uL (4.3-11.0)
[2020-02-01 03:54] LABS: ALBUMIN 3.7 GM/DL (3.2-4.5); POTASSIUM 4.3 MMOL/L (3.6-5.0)
[2020-02-01 03:55] LABS: CALCIUM 8.7 MG/DL (8.5-10.1)
[2020-02-01 03:56] VITALS: BP 95/62
[2020-02-01 03:56] LABS: TOTAL PROTEIN 6.4 GM/DL (6.4-8.2)
[2020-02-01 03:58] LABS: BILIRUBIN,TOTAL 0.3 MG/DL (0.1-1.0)
[2020-02-01 04:00] LABS: CREATININE SERUM 1.42 MG/DL (0.60-1.30)
--- NOTE | 2020-02-01 05:58 | History & Physical-Hospitalist ---
History of Present Illness HPI/Chief Complaint CC: Impacted kidney stone HPI: This is a 59yoWF clinic Pt of [facility] in [place] who has no history of kidney stones but presented with abdominal pain, nausea and vomiting to the [place] ER and was found to have an impacted kidney stone with hydronephrosis. She currently is having nausea and pain, and we will go ahead and give her some symptomatic medication. She is maintained on Rocephin for Pyelonephritis on CT scan and she will likely have a procedure by Dr. Kasper. Source: patient, RN/MD Exam Limitations: no limitations Date Seen 02/01/20 Time Seen by a Provider: 09:30 Attending Physician Imani Barkley DO [facility] Referring Physician Date of Admission Jan 31, 2020 at 23:17 Home Medications & Allergies Home Medications Reviewed patient Home Medication Reconciliation performed by pharmacy medication reconciliations fire control technician g and/or nursing. Patients Allergies have been reviewed. Allergies Allergies Coded Allergies No Known Drug Allergies (Aufrcfpsva69/23/19) Past Ymbjnyo-Ejankf-Sjqmcg Hx Past Med/Social Hx: Reviewed Nursing Past Med/Soc Hx, Reviewed and Corrections made Patient Social History Marrital Status: Employed/Student: employed, unemployed, student, full-time Alcohol Use: Denies Use Recreational Drug Use: Yes Drug of Choice: marijuana Smoking Status: Never a Smoker 2nd Hand Smoke Exposure: No Recent Foreign Travel: No Contact w/other who traveled: No Recent Hopitalizations: No Recent Infectious Disease Expo: No Seasonal Allergies Seasonal Allergies: No Past Medical History Surgeries: Appendectomy, Gallbladder Currently Using CPAP: No Currently Using BIPAP: No Cardiac: Hypertension Musculoskeletal: Arthritis, Chronic Back Pain Psychosocial: Anxiety, Bipolar History of Blood Disorders: No Family History Cancer, Hypertension Review of Systems Constitutional: see HPI, malaise, weakness All Other Systems Reviewed Negative Unless Noted: Yes Physical Exam Physical Exam Vital Signs Vital Signs - First Documented 01/31/20 01/31/20 18:54 22:50 Temp 36.3 Pulse 60 Resp 16 B/P (MAP) 144/73 (96) Pulse Ox 100 O2 Delivery Room Air Capillary Refill : Less Than 3 Seconds Height, Weight, BMI Height: '" Weight: lbs. oz. kg; 32.13 BMI Method: General Appearance: No Apparent Distress, Other (fatigued) Eyes: Right Eye Normal Inspection, Right Eye PERRL HEENT: PERRL/EOMI, TMs Normal, Normal ENT Inspection, Pharynx Normal, Moist M ucous Membranes Neck: Full Range of Motion, Normal Inspection, Non Tender Respiratory: Chest Non Tender, Lungs Clear, Normal Breath Sounds, No Accessory Muscle Use, No Respiratory Distress Cardiovascular: Regular Rate, Rhythm, No Edema, No Gallop, No JVD, No Murmur, Normal Peripheral Pulses Gastrointestinal: Normal Bowel Sounds, No Organomegaly, No Pulsatile Mass, Non Tender, Soft Back: Normal Inspection, No CVA Tenderness, No Vertebral Tenderness Extremity: Normal Capillary Refill, Normal Inspection, Normal Range of Motion, Non Tender, No Calf Tenderness, No Pedal Edema Neurologic/Psychiatric: Alert, Oriented x3, No Motor/Sensory Deficits, Normal Mood/Affect Skin: Normal Color, Warm/Dry Lymphatic: No Adenopathy Results Results/Procedures Labs Laboratory Tests 01/31/20 19:17 02/01/20 03:08 Patient resulted labs reviewed. Assessment/Plan Admission Diagnosis Assessment: Renal colic Impacted kidney stone Nausea and vomiting Leukocytosis Pyelonephritis on CT scan Fever Plan: Urology consultation appreciated IV antibiotics Pain control Anti-emetics Admission Status: Inpatient Order (span 2 midnights) Reason for Inpatient Admission: kidney stone impaction Diagnosis/Problems Diagnosis/Problems (1) Renal colic (2) Kidney stone (3) Hydronephrosis (4) Abdominal pain Status: Acute (5) Nausea and vomiting Status: Acute Clinical Quality Measures DVT/VTE Risk/Contraindication: Risk Factor Score Per Nursin RFS Level Per Nursing on Admit: 2=Moderate Contraindications-Mechi: Other *list below* Other: lOVENOX CONTRAINDICATED DUE TO PROCEDURE TOMORROW IMANI BARKLEY DO Feb 01, 2020 05:58
[2020-02-01] MEDS: ACETAMINOPHEN 325 MG TABLET PO PRN (07:53)
[2020-02-01 08:00] VITALS: BP 102/68
[2020-02-01] MEDS: ONDANSETRON 4 MG/2 ML (SDV) Z0FRAN IV PRN ×2 (10:00→21:41)
--- NOTE | 2020-02-01 10:04 | NUR ---
SPOKE WITH THE PT, CALLED MEDS BY MAIL ([facility] MEDS DELIVERY) AND WENT THRU THE EXT MED HISTORY TO COMPLETE THE MED REC THE FOLLOWING ARE FILL DATES FROM THE MAIL ORDER: 10-16-2019 MULTAQ 400MG #180/30DS 10-16-2019 LEVOTHYROXINE 125MCG #90/90DS 11-14-2019 BYSTOLIC 2.5MG #90/90DS 11-14-2019 ROSUVASTATIN 40MG #90/90DS 11-14-2019 DULOXETINE 30MG #180/90DS 11-16-2019 XARELTO 20MG #90/90DS 01-31-2020 ALLOPURINOL 300MG #90/90DS 01-31-2020 DICLOFENAC GEL #1 TUBE 01-31-2020 BONIVA 150MG #3/90DS 01-31-2020 IBUPROFEN 800MG #270 PT WAS ALSO JUST STARTED ON FUROSEMIDE AND THAT IS LISTED ON THE EXT MED HISTORY Addendum: 02/01/20 at 1159 by HOMA CAZARES CPhT PLEASE DISREGARD- WRONG PT
--- NOTE | 2020-02-01 10:16 | CONSULTATION REPORT ---
DATE OF SERVICE: 02/01/2020 ATTENDING PHYSICIAN: Dr. Barkley. SUMMARY: After reviewing the patient's records, interviewing her and examining her and her x-rays, this is a 59-year-old white lady with history of what sounded like gastroenteritis, nausea and vomiting for the last two weeks, presented to the emergency room in [place]. A CAT scan revealed a 2 mm stone with mild to moderate hydro and stranding around the kidney. White count was 22,000, down to 16 this morning. She was transferred here and admitted with diagnosis of pyelonephritis, although she has no fever and no significant pain or tenderness in the flank. She has not passed the stone yet, but she feels better pain brothers and nausea and vomiting brothers. ALLERGIES: She has no known drug allergies. No seasonal allergies. SOCIAL HISTORY: No smoking and no alcohol. Uses sometimes marijuana. PAST SURGICAL HISTORY: She had an appendectomy and a cholecystectomy. MEDICAL ILLNESSES: Hypertension, osteoarthritis, bipolar and anxiety. FAMILY HISTORY: Cancer and hypertension. LABORATORY DATA: Her BUN and creatinine on admission and 1.47 down today to 24 and 1.42. PHYSICAL EXAMINATION: GENERAL: Well-nourished and well-developed in no acute distress at the time of my examination. HEENT: Head is normocephalic. NECK: Supple and no bruits. CHEST: Clear and nontender. HEART: Regular rate and rhythm, no murmur. ABDOMEN: Soft. EXTREMITIES: Lower extremities, no edema. NEUROLOGIC: Grossly intact. IMPRESSION: 1. A 2 mm left proximal ureteral stone with mild to moderate hydro. 2. Gastroenteritis. 3. Medical illnesses per history. PLAN: It is mentioned that patient is on baby aspirin and the stone cannot be seen by KUB. I told her the size of the stone is passable as long as her symptoms are controlled. She does not have sepsis or uncontrolled symptoms. Unfortunately, it is hard to do an ESWL given the size of the stone as well as radiolucency. I told her the stone is passable. We will take one day at a time. We will recheck on her tomorrow. Keep her n.p.o. after midnight, started on Flomax. Continue the Rocephin and manage according day to day progress. Ideally, she is to pass the stone on her own. The other option would be ureteroscopy or stent basket according to where the stone is. This was fully explained to the patient. Job ID: [id number] DocumentID: [id number] Dictated Date: 02/01/2020 10:02:52 Nursing Unit Coordinator Date: 02/01/2020 10:15:31 Dictated By: RAJI BETTENCOURT MD
[2020-02-01] MEDS: fentaNYL INJECTION 100 MCG/2 ML AMP IVP PRN ×3 (10:30→21:40)
[2020-02-01] MEDS ORDERED: LANS30CA PO (11:48)
[2020-02-01 12:00] VITALS: BP 182/98
--- NOTE | 2020-02-01 12:00 | NUR ---
SPOKE WITH THE PT AND GOT A MED LIST FROM [facility] ( I WILL ATTACH IT TO HER FILE) TO COMPLETE THE MED REC CLONIDINE 0.1MG: THE DIRECTIONS SHOW 1 TAB TID BUT THE PT SAYS SHE TAKES ALL TABS AT HS (0.1MG 3 TABS) FILL DATES FROM [facility]: 11-24-2019 LISINOPRIL 10MG #90/90DS 12-30-2019 AMITRIPTYLINE 25MG #90/90DS 01-21-2020 ADDERALL XR 30MG #30/30DS 01-26-2020 CLONIDINE 0.1MG #90/30DS 01-26-2020 EFFEXOR XR 150MG #60/30DS 01-26-2020 MELOXICAM 15MG #30/30DS 01-26-2020 LANSOPRAZOLE 30MG #30/30DS 01-29-2020 TRAMADOL 50MG #160 OTC MEDS: IRON ASPIRIN 81MG
[2020-02-01] MEDS: PROMETHAZINE INJ 25 MG/ML (PHENERGAN) AMP IM PRN ×2 (12:32→18:50)
[2020-02-01 14:00] VITALS: BP 171/84
[2020-02-01] MEDS: HYDROmorphone 2 MG/ML VIAL (DILAUDID) IVP PRN ×2 (14:11→18:49)
[2020-02-01 16:28] VITALS: BP 161/81
[2020-02-01] MEDS: ONDANSETRON 4 MG/2 ML (SDV) Z0FRAN IVP PRN (16:34)
[2020-02-01] MEDS: TAMSULOSIN 0.4 MG (FLOMAX) CAP PO SCH (17:21)
[2020-02-01] MEDS ORDERED: cefTRIAXone 1,000 MG IV (ROCEPHIN) VIAL ONE (20:10)
[2020-02-01] MEDS ORDERED: WATER (STERILE) FOR INJECTION 10 ML ONE (20:10)
[2020-02-01 20:11] VITALS: BP 170/79
--- NOTE | 2020-02-01 21:10 | NUR ---
NOTIFIED DR CAMARGO OF PT CONTINUED NAUSEA AND VOMITING. REGLAN ORDERED. DILAUDID DOSAGE CHANGED. REQUEST CONSULT TO GENERAL SURGERY.
--- NOTE | 2020-02-01 21:19 | NUR ---
CHARAN NOTIFIED OF CONSULT. FULL PT REPORT GIVEN VIA PHONE. ORDERS TO MAKE PT NPO AT THIS TIME. CHARAN STATES, "UNFORTUNATELY, THE NAUSEA AND VOMITING IS MOST LIKELY RELATED TO HER PAIN OR THE PAIN MEDICATIONS. I DO NOT THINK AND NG TUBE WOULD DO ANYTHING FOR HER AT THIS TIME."
[2020-02-01] MEDS: METOCLOPRAMIDE INJ 10 MG/2 ML (REGLAN) IVP PRN (21:40)
[2020-02-01] MEDS: diphenhydrAMINE 50 MG/ML INJ (BENADRYL) IVP PRN (21:41)
[2020-02-01] MEDS: cefTRIAXone 1,000 MG/SWFI 10 ML IV PUSH IV SCH ×2 (21:41)
[2020-02-02] VITALS (12 sets, daily range): BP systolic 106–181; BP diastolic 60–96
[2020-02-02] MEDS: HYDROmorphone 2 MG/ML VIAL (DILAUDID) IVP PRN ×5 (00:09→20:25)
[2020-02-02] MEDS: PROMETHAZINE INJ 25 MG/ML (PHENERGAN) AMP IM PRN ×3 (00:13→16:55)
[2020-02-02] MEDS: ONDANSETRON 4 MG/2 ML (SDV) Z0FRAN IV PRN (05:26)
[2020-02-02 05:53] LABS: BASOPHILS % (AUTO) 0 % (0-10); EOSINOPHILS % (AUTO) 0 % (0-10); HEMATOCRIT 35 % (35-52); HEMOGLOBIN 11.8 G/DL (11.5-16.0); LYMPHOCYTES # (AUTO) 2.5 X 10^3 (1.0-4.0); LYMPHOCYTES % (AUTO) 14 % (12-44); MEAN CORPUSCULAR HEMOGLOBIN 30 PG (25-34); MEAN CORPUSCULAR HGB CONC 34 G/DL (32-36); MEAN CORPUSCULAR VOLUME 88 FL (80-99); MEAN PLATELET VOLUME 9.9 FL (7.4-10.4); MONOCYTES # (AUTO) 1.1 X 10^3 (0.0-1.0); MONOCYTES % (AUTO) 6 % (0-12); NEUTROPHILS # (AUTO) 13.6 X 10^3 (1.8-7.8); NEUTROPHILS % (AUTO) 79 % (42-75); PLATELET COUNT 250 10^3/uL (130-400); RED CELL DISTRIBUTION WIDTH 14.1 % (10.0-14.5); WHITE BLOOD COUNT 17.1 10^3/uL (4.3-11.0)
[2020-02-02 06:13] LABS: ALBUMIN 3.8 GM/DL (3.2-4.5); CHLORIDE 108 MMOL/L (98-107); POTASSIUM 3.7 MMOL/L (3.6-5.0); SODIUM 140 MMOL/L (135-145)
[2020-02-02 06:14] LABS: CALCIUM 8.5 MG/DL (8.5-10.1)
[2020-02-02 06:15] LABS: GLUCOSE 110 MG/DL (70-105); TOTAL PROTEIN 6.5 GM/DL (6.4-8.2)
[2020-02-02 06:16] LABS: CARBON DIOXIDE 19 MMOL/L (21-32)
[2020-02-02 06:17] LABS: BILIRUBIN,TOTAL 0.4 MG/DL (0.1-1.0)
[2020-02-02 06:19] LABS: ALKALINE PHOSPHATASE 92 U/L (40-136); CREATININE SERUM 0.82 MG/DL (0.60-1.30); GFR ESTIMATED > 60
[2020-02-02 06:20] LABS: BUN/CREATININE RATIO 18
[2020-02-02 06:22] LABS: ALANINE AMINOTRANSFERASE 31 U/L (0-55)
[2020-02-02] MEDS: NS IV 1000 ML 1,000 ML IV SCH ×3 (08:12→22:45)
--- NOTE | 2020-02-02 08:24 | Diagnostic Imaging Report ---
INDICATION: Ureteral calculus. Exam compared with radiograph 01/30 as well as correlated with CT abdomen pelvis 01/31/2020. The faint tiny 2 mm stone in the proximal left ureter seen on CT is radiographically imperceptible. Pelvic calcifications compatible with phleboliths unchanged. The bowel gas pattern normal. IMPRESSION: The tiny left proximal ureteral stone visualized on earlier CT is radiographically imperceptible. Dictated by: Dictated on workstation # [id number]
[2020-02-02] MEDS: fentaNYL INJECTION 100 MCG/2 ML AMP IVP PRN ×2 (08:59→22:44)
--- NOTE | 2020-02-02 09:36 | Progress Note-Pre Operative ---
Pre-Operative Progress Note H&P Reviewed The H&P was reviewed, patient examined and no changes noted. Date Seen by Provider: Feb 02, 2020 Time Seen by Provider: 09:36 Date H&P Reviewed: Feb 02, 2020 Time H&P Reviewed: 09:36 Pre-Operative Diagnosis: LT URETERAL STONE RAJI BETTENCOURT MD Feb 02, 2020 09:36
--- NOTE | 2020-02-02 09:59 | Progress Note - Hospitalist ---
Subjective HPI/CC On Admission Date Seen by Provider: Feb 02, 2020 Time Seen by Provider: 10:00 CC: Impacted kidney stone HPI: This is a 59yoWF clinic Pt of [facility] in [place] who has no history of kidney stones but presented with abdominal pain, nausea and vomiting to the [place] ER and was found to have an impacted kidney stone with hydronephrosis. She currently is having nausea and pain, and we will go ahead and give her some symptomatic medication. She is maintained on Rocephin for Pyelonephritis on CT scan and she will likely have a procedure by Dr. Kasper. Subjective/Events-last exam Pt having some struggles with nausea NG tube not recommended by general surgery Vomiting is still an issue Stent was placed by Dr. Kasper today without complication Maintain on Rocephin empirically Restarted all of her bipolar mental illness medication Review of Systems Gastrointestinal: Nausea, Vomiting Musculoskeletal: back pain Objective Exam Vital Signs Vital Signs Date Time Temp Pulse Resp B/P (MAP) Pulse Ox O2 Delivery O2 Flow Rate FiO2 02/02/20 19:21 37.7 116 15 181/96 (124) 98 Room Air 02/02/20 13:15 3 Capillary Refill : Less Than 3 Seconds General Appearance: No Apparent Distress, WD/WN, Other (fatigued) Respiratory: Chest Non Tender, Lungs Clear, Normal Breath Sounds, No Accessory Muscle Use, No Respiratory Distress Cardiovascular: Regular Rate, Rhythm, No Edema, No Gallop, No JVD, No Murmur, Normal Peripheral Pulses Neurologic/Psychiatric: Alert, Oriented x3, No Motor/Sensory Deficits, Normal Mood/Affect Results/Procedures Lab Laboratory Tests 02/02/20 05:35 Patient resulted labs reviewed. Assessment/Plan Assessment and Plan Assess & Plan/Chief Complaint Assessment: Renal colic Impacted kidney stone s/p stent placement Nausea and vomiting Leukocytosis Pyelonephritis on CT scan Fever Plan: Urology consultation appreciated IV antibiotics Pain control Anti-emetics Procedure today 02/02/2020 by Urology Diagnosis/Problems Diagnosis/Problems (1) Renal colic (2) Kidney stone (3) Hydronephrosis (4) Abdominal pain Status: Acute (5) Nausea and vomiting Status: Acute Clinical Quality Measures DVT/VTE Risk/Contraindication: Risk Factor Score Per Nursin RFS Level Per Nursing on Admit: 2=Moderate Contraindications-Mechi: Other *list below* Other: lOVENOX CONTRAINDICATED DUE TO PROCEDURE TOMORROW CLAUDIO CAMARGO DO Feb 02, 2020 09:59
[2020-02-02] MEDS ORDERED: LACTATED RINGERS 1,000 ML IV PRN (12:01)
[2020-02-02] MEDS ORDERED: IOPAMIDOL 61% 30 ML (ISOVUE 300) VIAL ONE (12:01)
[2020-02-02] MEDS ORDERED: FAMOTIDINE 20MG/2ML IV (PEPCID) ONE (12:04)
[2020-02-02] MEDS ORDERED: MIDAZOLAM 2 MG/2 ML (VERSED) VIAL ONE (12:09)
[2020-02-02] MEDS ORDERED: fentaNYL INJECTION 100 MCG/2 ML AMP ONE (12:09)
--- NOTE | 2020-02-02 12:52 | Anesthesia-General Post-Op ---
General Patient Condition Mental Status/LOC: Same as Preop Cardiovascular: Satisfactory Nausea/Vomiting: Absent Respiratory: Satisfactory Pain: Controlled Complications: Absent Post Op Complications Complications None Follow Up Care/Instructions Patient Instructions None needed. Anesthesia/Patient Condition Patient Condition Patient is doing well, no complaints, stable vital signs, no apparent adverse anesthesia problems. No complications reported per nursing. EZEKIEL CHARLES CRNA Feb 02, 2020 12:52
[2020-02-02] MEDS ORDERED: ONDANSETRON 4 MG/2 ML (SDV) Z0FRAN IVP PRN (13:00)
[2020-02-02] MEDS ORDERED: morphine INJ 10 MG/ML 1ML (SYR OR VIAL) IVP ONE (13:00)
--- NOTE | 2020-02-02 13:06 | Progress Note-Post Operative ---
Post-Operative Progess Note Surgeon (s)/Radiologic Tech (s) Surgeon RAJI BETTENCOURT MD Radiologic Tech: NONE Pre-Operative Diagnosis LT URETERAL STONE Post-Operative Diagnosis SAME Procedure & Operative Findings Date of Procedure 02/02/20 Procedure Performed/Findings CYSTO, LT RETROGRADE UROGRAM AND INSERTION OF STENT Anesthesia Type GENERAL Estimated Blood Loss Estimated blood loss (mL): NONE Specimens/Packing Specimens Removed NONE Packing: NONE RAJI BETTENCOURT MD Feb 02, 2020 13:06
--- NOTE | 2020-02-02 13:35 | NUR ---
Pt transferred back to room [address] Kasper. Report received from MAREN Kern. Pt comfortable and reports no pain at this time. This RN assumes care of pt.
[2020-02-02] MEDS: TAMSULOSIN 0.4 MG (FLOMAX) CAP PO SCH (17:39)
[2020-02-02] MEDS: ACETAMINOPHEN 325 MG TABLET PO PRN (17:48)
--- NOTE | 2020-02-02 19:54 | Consultation - Surgery ---
History of Present Illness History of Present Illness Patient Consulted On(nadege/time) 02/02/20 08:19 Date Seen by Provider: Feb 02, 2020 Time Seen by Provider: 08:19 History of Present Illness Consult requested by Dr. Barkley for nausea and vomiting. Patient is a 59 year old female who has felt ill for about 3 days. She has been having llq abdominal pain that is moving into her back. Nothign has made it better. Not sure if anything makes worse. Constant. Patient having nauea and episode of emesis. I made her NPO last night and she hasn't had any further emesis, but still felt nauseated. Patient had a ct scan performed demonstrating 1. Left hydronephrosis and hydroureter secondary to a 2 mm stonein the proximal ureter just below the left UPJ. Additionally,there are inflammatory changes about the left kidney. A superimposed pyelonephritis cannot be excluded. Recommend clinical correlation.2. Small right renal cyst.3. Moderate hiatal hernia. Allergies and Home Medications Allergies Coded Allergies: No Known Drug Allergies (Unverified , 05/12/19) Home Medications Amitriptyline HCl 25 Mg Tablet, 25 MG PO HS, (Reported) Aspirin 81 Mg Tablet.dr, 81 MG PO DAILY, (Reported) Clonidine HCl 0.1 Mg Tablet, 0.3 MG PO HS, (Reported) TAKES 3 (0.1MG) TABS AT BEDTIME Dextroamphetamine/Amphetamine 30 Mg Cap.er.24h, 30 MG PO DAILY, (Reported) Ferrous Sulfate 325 Mg Tablet, 325 MG PO HS, (Reported) Lansoprazole 30 Mg Capsule.dr, 30 MG PO HS, (Reported) Lisinopril 10 Mg Tablet, 10 MG PO HS, (Reported) Meloxicam 15 Mg Tablet, 15 MG PO DAILY, (Reported) Tramadol HCl 50 Mg Tablet, 50-100 MG PO Q4H PRN for PAIN-MODERATE, (Reported) Venlafaxine HCl 150 Mg Cap.er.24h, 300 MG PO DAILY, (Reported) TAKES 2 (150MG) CAPS ONCE DAILY Patient Home Medication List Home Medication List Reviewed: Yes Past Isnwlpv-Dpjyfg-Iisptg Hx Patient Social History Alcohol Use: Denies Use Recreational Drug Use: Yes Drug of Choice: marijuana Smoking Status: Never a Smoker 2nd Hand Smoke Exposure: No Recent Foreign Travel: No Contact w/Someone Who Travel: No Recent Infectious Disease Expo: No Recent Hopitalizations: No Seasonal Allergies Seasonal Allergies: No Surgeries History of Surgeries: Yes Surgeries: Appendectomy, Gallbladder Respiratory History of Respiratory Disorde: No Cardiovascular History of Cardiac Disorders: Yes Cardiac Disorders: Hypertension Neurological History of Neurological Disord: Yes (PT. STATED SHE HAS WHITE MASS ON THE BRAIN) Genitourinary History of Genitourinary Disor: No Gastrointestinal History of Gastrointestinal Di: No Musculoskeletal History of Musculoskeletal Dis: Yes (reactive arthritis ) Musculoskeletal Disorders: Arthritis, Chronic Back Pain Endocrine History of Endocrine Disorders: No HEENT History of HEENT Disorders: No Cancer History of Cancer: No Psychosocial History of Psychiatric Problem: No Behavioral Health Disorders: Anxiety, Bipolar Integumentary History of Skin or Integumenta: No Blood Transfusions History of Blood Disorders: No Family Medical History Significant Family History: Cancer, Hypertension Review of Systems-General Constitutional: No chills, No diaphoresis EENTM: No ear pain, No blurred vision Respiratory: No cough, No dyspnea on exertion, No short of breath Cardiovascular: No chest pain Gastrointestinal: abdominal pain (LLQ), nausea, vomiting Genitourinary: see HPI Musculoskeletal: back pain; No joint pain Skin: No change in color, No change in hair/nails Psychiatric/Neurological: Denies Anxiety, Denies Depressed, Denies Emotional Problems All Other Systems Reviewed Negative Unless Noted: Yes (Negative excepted noted.) Physical Exam-General Problems Physical Exam Vital Signs Vital Signs - First Documented 01/31/20 01/31/20 18:54 22:50 Temp 36.3 Pulse 60 Resp 16 B/P (MAP) 144/73 (96) Pulse Ox 100 O2 Delivery Room Air Capillary Refill : Less Than 3 SecondsLess Than 3 Seconds General Appearance: WD/WN, mild distress HEENT: PERRL/EOMI, normal ENT inspection Neck: non-tender, full range of motion, supple, normal inspection Respiratory: chest non-tender, no respiratory distress, no accessory muscle use Cardiovascular: regular rate, rhythm, no edema Gastrointestinal: soft; No guarding, No rebound; tenderness (llq) Rectal: deferred Back: normal inspection, CVA tenderness (L) Neurologic/Psychiatric: no motor/sensory deficits, alert, normal mood/affect, oriented x 3 Skin: normal color, warm/dry Lymphatic: no adenopathy Data Review Labs Laboratory Tests 02/02/20 05:35: White Blood Count 17.1H, Red Blood Count 4.00L, Hemoglobin 11.8, Hematocrit 35, Mean Corpuscular Volume 88, Mean Corpuscular Hemoglobin 30, Mean Corpuscular Hemoglobin Concent 34, Red Cell Distribution Width 14.1, Platelet Count 250, Mean Platelet Volume 9.9, Neutrophils (%) (Auto) 79H, Lymphocytes (%) (Auto) 14, Monocytes (%) (Auto) 6, Eosinophils (%) (Auto) 0, Basophils (%) (Auto) 0, Neutrophils # (Auto) 13.6H, Lymphocytes # (Auto) 2.5, Monocytes # (Auto) 1.1H, Eosinophils # (Auto) 0.0, Basophils # (Auto) 0.0, Sodium Level 140, Potassium Level 3.7, Chloride Level 108H, Carbon Dioxide Level 19L, Anion Gap 13, Blood Urea Nitrogen 15, Creatinine 0.82, Estimat Glomerular Filtration Rate > 60, BUN/Creatinine Ratio 18, Glucose Level 110H, Calcium Level 8.5, Corrected Calcium 8.7, Total Bilirubin 0.4, Aspartate Amino Transf (AST/SGOT) 25, Alanine Aminotransferase (ALT/SGPT) 31, Alkaline Phosphatase 92, Total Protein 6.5, Albumin 3.8 02/02/20 10:20: Microbiology 01/31/20 Urine Culture - Preliminary, Resulted Culture In Progress Assessment/Plan Assessment/Plan Assessment/Plan nausea and vomiting left hydronephrosis c stone left pyelonephritis Hiatal herina Made patient NPO last night Antiemetics On antibiotics for pyelonephritis Patient for cystoscopy today with Dr. Kasper Likely cause of nausea/vomiting from stone/pyelonephritis Hiatal hernia could have egd outpatient to further evaluate, unless symptoms persist Clinical Quality Measures DVT/VTE Risk/Contraindication: Risk Factor Score Per Nursin RFS Level Per Nursing on Admit: 2=Moderate Contraindications-Mechi: Other *list below* Other: lOVENOX CONTRAINDICATED DUE TO PROCEDURE TOMORROW COCO FARRAR DO Feb 02, 2020 19:54
[2020-02-02] MEDS: ONDANSETRON 4 MG/2 ML (SDV) Z0FRAN IVP PRN (20:24)
[2020-02-02] MEDS: MELATONIN 3 MG TABLET PO PRN (20:25)
--- NOTE | 2020-02-02 20:54 | OPERATIVE REPORT ---
DATE OF SERVICE: 02/02/2020 PREOPERATIVE DIAGNOSIS: Left proximal ureteral stone. POSTOPERATIVE DIAGNOSIS: Left proximal ureteral stone. OPERATION PERFORMED: Cystoscopy, left retrograde urogram is a manipulation of stone and insertion of left double-J stent. SURGEON: Cristóbal Bettencourt MD ANESTHESIA: General. COMPLICATIONS: None. DESCRIPTION OF PROCEDURE: With the patient in lithotomy position, genitalia were prepped and draped in the usual sterile fashion. Cystoscope was introduced under vision and the bladder was essentially normal except for some sluggish efflux on the left side. Using the foroblique lens, I passed a 5-Georgian ureteral catheter guided fluoroscopically all the way up to the kidney with no resistance whatsoever or problems. I removed it back to drop down to the intramural portion and injected contrast could not see any filling defect or obstruction whatsoever, no hydro. I removed the catheter and inserted a 6-Georgian 24 cm stent guided fluoroscopically all the way up to the left renal pelvis. The guidewire was removed and the stent was seen jetting nicely proximally fluoroscopically and distally endoscopically. Bladder was evacuated and cystoscope was removed. The patient tolerated the procedure and anesthesia well and was sent to recovery room in stable condition. PLAN: We will observe and passage of the stone spontaneously around the stent. I could not do any further aggressive procedure because of the aspirin on board and the stone is small enough to pass on his own, especially now and sliding around the stent. I will see her back in a week at the office and we removed the stent cystoscopically. This was fully explained to her daughter. Job ID: [id number] DocumentID: [id number] Dictated Date: 02/02/2020 13:10:33 Textile Knitter Date: 02/02/2020 20:53:19 Dictated By: CRISTÓBAL BETTENCOURT MD
[2020-02-02] MEDS ORDERED: cefTRIAXone 1,000 MG IV (ROCEPHIN) VIAL ONE (22:35)
[2020-02-02] MEDS ORDERED: WATER (STERILE) FOR INJECTION 10 ML ONE (22:35)
[2020-02-02] MEDS: cefTRIAXone 1,000 MG/SWFI 10 ML IV PUSH IV SCH ×2 (22:44)
[2020-02-02] MEDS: METOCLOPRAMIDE INJ 10 MG/2 ML (REGLAN) IVP PRN (22:44)
[2020-02-03] MEDS: HYDROmorphone 2 MG/ML VIAL (DILAUDID) IVP PRN ×4 (01:35→20:08)
[2020-02-03] MEDS: diphenhydrAMINE 50 MG/ML INJ (BENADRYL) IVP PRN (01:35)
[2020-02-03] MEDS: PROMETHAZINE INJ 25 MG/ML (PHENERGAN) AMP IM PRN ×2 (01:35→20:09)
[2020-02-03 04:00] VITALS: BP 125/68
[2020-02-03] MEDS: NS IV 1000 ML 1,000 ML IV SCH ×3 (04:28→20:18)
[2020-02-03] MEDS: ONDANSETRON 4 MG/2 ML (SDV) Z0FRAN IVP PRN (04:29)
[2020-02-03] MEDS ORDERED: PANTOPRAZOLE 40 MG (PROTONIX) VIAL IV ONE (05:15)
[2020-02-03 05:50] LABS: BASOPHILS % (AUTO) 0 % (0-10); EOSINOPHILS % (AUTO) 0 % (0-10); HEMATOCRIT 33 % (35-52); HEMOGLOBIN 11.2 G/DL (11.5-16.0); LYMPHOCYTES % (AUTO) 14 % (12-44); MEAN CORPUSCULAR HEMOGLOBIN 30 PG (25-34); MEAN CORPUSCULAR HGB CONC 34 G/DL (32-36); MEAN CORPUSCULAR VOLUME 87 FL (80-99); MEAN PLATELET VOLUME 10.3 FL (7.4-10.4); MONOCYTES % (AUTO) 7 % (0-12); NEUTROPHILS # (AUTO) 11.2 X 10^3 (1.8-7.8); NEUTROPHILS % (AUTO) 79 % (42-75); PLATELET COUNT 236 10^3/uL (130-400); RED CELL DISTRIBUTION WIDTH 13.4 % (10.0-14.5); WHITE BLOOD COUNT 14.3 10^3/uL (4.3-11.0)
[2020-02-03 06:12] LABS: ALANINE AMINOTRANSFERASE 39 U/L (0-55); ALBUMIN 3.6 GM/DL (3.2-4.5); ALKALINE PHOSPHATASE 75 U/L (40-136); BILIRUBIN,TOTAL 0.3 MG/DL (0.1-1.0); BUN/CREATININE RATIO 14; CALCIUM 8.7 MG/DL (8.5-10.1); CARBON DIOXIDE 23 MMOL/L (21-32); CHLORIDE 106 MMOL/L (98-107); CREATININE SERUM 0.78 MG/DL (0.60-1.30); GFR ESTIMATED > 60; GLUCOSE 122 MG/DL (70-105); SODIUM 139 MMOL/L (135-145); TOTAL PROTEIN 6.2 GM/DL (6.4-8.2)
[2020-02-03] MEDS: SUCRALFATE 1 GM (CARAFATE) TAB PO SCH ×4 (06:30→20:08)
--- NOTE | 2020-02-03 06:43 | NUR ---
SPOKE WITH CHARAN THIS AM ABOUT PT'S CONTINUED NAUSEA. CHARAN NOTIFIED THAT PT HAS BEEN TAKING MOBIC FOR YEARS WITHOUT ANY PROTONIX OR OTHER MEDICATIONS TO PROTECT THE STOMACH. PROTONIX AND CARAFATE ORDERS OBTAINED.
[2020-02-03 07:55] VITALS: BP 145/90
[2020-02-03] MEDS: ACETAMINOPHEN 325 MG TABLET PO PRN (08:18)
[2020-02-03] MEDS: fentaNYL INJECTION 100 MCG/2 ML AMP IVP PRN ×3 (09:26→17:36)
--- NOTE | 2020-02-03 10:08 | Progress Note - Urology ---
Progress Note-Urology Progress Notes/Assess & Plan Progress/Assessment & Plan RECOVERED WELL FROM OR. NO PAIN. AFEBRILE. OK TO DISCHARGE ANSARI ON ABX AND OFFICE NEXT WEEK FOR CYSTO AND DC STENT Final Diagnosis LT URETERAL STONE RAJI BETTENCOURT MD Feb 03, 2020 10:08
--- NOTE | 2020-02-03 10:38 | Progress Note - Surgery ---
Subjective Date Seen by a Provider: Feb 03, 2020 Time Seen by a Provider: 10:34 Subjective/Events-last exam nausea and vomiting overnight. Now feeling better. Was started on Pro tonix/Carafate. Denies any nausea currently. Denies any abdominal pain. Denies fever sweats chills shortness of breath or chest pain. Objective Exam Vital Signs Date Time Temp Pulse Resp B/P (MAP) Pulse Ox O2 Delivery O2 Flow Rate FiO2 02/03/20 09:00 98 Room Air 02/03/20 07:55 37.3 82 16 145/90 (108) 98 Room Air 02/03/20 04:00 36.5 80 18 125/68 (87) 94 Room Air 02/02/20 23:54 37.1 82 16 106/60 (75) 95 Room Air 02/02/20 20:00 Room Air 02/02/20 19:21 37.7 116 15 181/96 (124) 98 Room Air 02/02/20 16:36 37.0 86 17 150/92 (111) 90 Room Air 02/02/20 13:35 36.3 20 133/81 (98) 94 Room Air 02/02/20 13:35 Room Air 02/02/20 13:30 Room Air 02/02/20 13:20 20 113/80 (91) 95 Room Air 02/02/20 13:15 37.0 80 16 116/82 (93) 94 Room Air 02/02/20 13:15 OxyMask 3 02/02/20 13:10 20 120/74 (89) 100 OxyMask 3 02/02/20 13:00 OxyMask 4 02/02/20 13:00 20 127/74 (91) 98 OxyMask 3 02/02/20 12:47 OxyMask 6 02/02/20 12:47 36.3 20 115/75 (88) 100 OxyMask 6 02/02/20 11:11 36.8 82 16 106/65 (79) 95 Room Air I & O 02/03/20 07:00 Intake Total 3290 ml Output Total 1700 ml Balance 1590 ml Capillary Refill : Less Than 3 SecondsLess Than 3 Seconds General Appearance: No Apparent Distress, WD/WN, Other (fatigued) HEENT: PERRL/EOMI, Normal ENT Inspection Neck: Full Range of Motion, Normal Inspection, Non Tender Respiratory: Chest Non Tender, No Accessory Muscle Use, No Respiratory Distress Cardiovascular: Regular Rate, Rhythm, No Edema, Normal Peripheral Pulses Gastrointestinal: soft; No guarding, No rebound; tenderness (llq minimal) Extremity: Normal Capillary Refill, Normal Inspection, Normal Range of Motion, Non Tender, No Calf Tenderness, No Pedal Edema Neurologic/Psychiatric: Alert, Oriented x3, No Motor/Sensory Deficits, Normal Mood/Affect Skin: Normal Color, Warm/Dry Lymphatic: No Adenopathy Results Lab Laboratory Tests 02/03/20 05:34: White Blood Count 14.3H, Red Blood Count 3.76L, Hemoglobin 11.2L, Hematocrit 33L , Mean Corpuscular Volume 87, Mean Corpuscular Hemoglobin 30, Mean Corpuscular Hemoglobin Concent 34, Red Cell Distribution Width 13.4, Platelet Count 236, Mean Platelet Volume 10.3, Neutrophils (%) (Auto) 79H, Lymphocytes (%) (Auto) 14, Monocytes (%) (Auto) 7, Eosinophils (%) (Auto) 0, Basophils (%) (Auto) 0, Neutrophils # (Auto) 11.2H, Lymphocytes # (Auto) 2.0, Monocytes # (Auto) 1.0, Eosinophils # (Auto) 0.0, Basophils # (Auto) 0.0, Sodium Level 139, Potassium Level 4.0, Chloride Level 106, Carbon Dioxide Level 23, Anion Gap 10, Blood Urea Nitrogen 11, Creatinine 0.78, Estimat Glomerular Filtration Rate > 60, BUN/Creatinine Ratio 14, Glucose Level 122H, Calcium Level 8.7, Corrected Piero cium 9.0, Total Bilirubin 0.3, Aspartate Amino Transf (AST/SGOT) 31, Alanine Aminotransferase (ALT/SGPT) 39, Alkaline Phosphatase 75, Total Protein 6.2L, Albumin 3.6 Microbiology 02/02/20 MRSA Screen - Final, Complete MRSA not isolated 01/31/20 Urine Culture - Preliminary, Resulted Culture In Progress Assessment/Plan Assessment/Plan Assessment/Plan nausea and vomiting left hydronephrosis c stone left pyelonephritis Hiatal herina Antiemetics On antibiotics for pyelonephritis Likely cause of nausea/vomiting from stone/pyelonephritis, if gastritis have started on Protonix/Carafate, doing better today Hiatal hernia could have egd outpatient to further evaluate, unless symptoms persist and could do here Clinical Quality Measures DVT/VTE Risk/Contraindication: Risk Factor Score Per Nursin RFS Level Per Nursing on Admit: 2=Moderate Contraindications-Mechi: Other *list below* Other: lOVENOX CONTRAINDICATED DUE TO PROCEDURE TOMORROW COCO FARRAR DO Feb 03, 2020 10:38
--- NOTE | 2020-02-03 10:55 | PM&R Progress Note ---
Subjective HPI/CC On Admission Date Seen by Provider: Feb 03, 2020 Time Seen by Provider: 09:30 CC: Impacted kidney stone HPI: This is a 59yoWF clinic Pt of [facility] in [place] who has no history of kidney stones but presented with abdominal pain, nausea and vomiting to the [place] ER and was found to have an impacted kidney stone with hydronephrosis. She currently is having nausea and pain, and we will go ahead and give her some symptomatic medication. She is maintained on Rocephin for Pyelonephritis on CT scan and she will likely have a procedure by Dr. Kasper. Review of Systems General: Fatigue, Malaise Musculoskeletal: back pain Objective Exam Vital Signs Vital Signs Date Time Temp Pulse Resp B/P (MAP) Pulse Ox O2 Delivery O2 Flow Rate FiO2 02/03/20 19:07 37.1 91 18 159/95 (116) 97 Room Air 02/02/20 13:15 3 Capillary Refill : Less Than 3 SecondsLess Than 3 Seconds General Appearance: No Apparent Distress, WD/WN, Anxious, Chronically ill, Moderate Distress, Other (fatigued) HEENT: PERRL/EOMI, Normal ENT Inspection Neck: Full Range of Motion, Normal Inspection, Non Tender Respiratory: Chest Non Tender, No Accessory Muscle Use, No Respiratory Distress Cardiovascular: Regular Rate, Rhythm, No Edema, Normal Peripheral Pulses Gastrointestinal: Normal Bowel Sounds, No Organomegaly, No Pulsatile Mass, Non Tender, Soft Back: Normal Inspection, No CVA Tenderness, No Vertebral Tenderness Extremity: Normal Capillary Refill, Normal Inspection, Normal Range of Motion, Non Tender, No Calf Tenderness, No Pedal Edema Neurologic/Psychiatric: Alert, Oriented x3, No Motor/Sensory Deficits, Depressed Affect Skin: Normal Color, Warm/Dry Lymphatic: No Adenopathy Results/Procedures Lab Laboratory Tests 02/03/20 05:34 Patient resulted labs reviewed. F[facility] Transfers Therapy Code Descriptions/Definitions Functional Anderson Measure: 0=Not Assessed/NA 4=Minimal Assistance 1=Total Assistance 5=Supervision or Setup 2=Maximal Assistance 6=Modified Anderson 3=Moderate Assistance 7=Complete IndependenceSCALE: Activities may be completed with or without assistive devices. 5-Imjresapgm-vjtopsy completes the activity by him/herself with no assistance from a helper. 5-Set-up or Clean-up Assistance-helper sets up or cleans up; patient completes activity. [place] assists only prior to or following the activity. 4-Supervision or Touching Assistance-helper provides verbal cues and/or touching/steadying and/or contact guard assistance as patient completes activity. Assistance may be provided throughout the activity or intermittently. 3-Partial/Moderate Assistance-helper does LESS THAN HALF the effort. [place] lifts, holds or supports trunk or limbs, but provides less than half the effort. 2-Substantial/Maximal Assistance-helper does MORE THAN HALF the effort. [place] lifts or holds trunk or limbs and provides more than half the effort. 0-Wcarkwtri-raefwp does ALL the effort. Patient does none of the effort to complete the activity. Or, the assistance of 2 or more helpers is required for the patient to complete the activity. If activity was not attempted, code reason: 7-Patient Refused. 9-Not Applicable-not attempted and the patient did not perform the activity before the current illness, exacerbation or injury. 10-Not Attempted due to Environmental Limitations-(lack of equipment, weather restraints, etc.). 88-Not Attempted due to Medical Conditions or Safety Concerns. Assessment/Plan Assessment and Plan (1) Renal colic (2) Kidney stone (3) Hydronephrosis (4) Abdominal pain Status: Acute (5) Nausea and vomiting Status: Acute CLAUDIO CAMARGO DO Feb 03, 2020 10:55
[2020-02-03] MEDS: VENlafaxine XR 75 MG (EFFEXOR XR) CAP PO SCH (11:46)
[2020-02-03 16:00] VITALS: BP 173/103
--- NOTE | 2020-02-03 16:45 | NUR ---
ASSUMED CARE OF PT AT THIS TIME R/T STAFFING.
[2020-02-03] MEDS: TAMSULOSIN 0.4 MG (FLOMAX) CAP PO SCH (17:36)
--- NOTE | 2020-02-03 17:43 | NUR ---
PT C/O PAIN 02/27. FENTANYL IV GIVEN ORDERED FOR PAIN RATING OF 8. PT THEN REQUESTING DILAUDID STATING "DILAUDID MAKES ME FEEL BETTER". INFORMED PT THAT MED WAS GIVEN ORDERED FOR HER PAIN RATING. STATES "WELL, NEXT TIME I WILL LIE."
[2020-02-03 19:07] VITALS: BP 159/95
[2020-02-03] MEDS ORDERED: WATER (STERILE) FOR INJECTION 10 ML ONE (19:54)
[2020-02-03] MEDS ORDERED: cefTRIAXone 1,000 MG IV (ROCEPHIN) VIAL ONE (19:54)
[2020-02-03] MEDS: ALPRAZolam 0.25 MG (XANAX) TAB PO PRN (20:08)
[2020-02-03] MEDS: MELATONIN 3 MG TABLET PO PRN (20:08)
[2020-02-03] MEDS: cefTRIAXone 1,000 MG/SWFI 10 ML IV PUSH IV SCH ×2 (20:09)
--- NOTE | 2020-02-03 20:44 | Progress Note - Hospitalist ---
Subjective HPI/CC On Admission Date Seen by Provider: Feb 03, 2020 Time Seen by Provider: 09:30 CC: Impacted kidney stone HPI: This is a 59yoWF clinic Pt of [facility] in [place] who has no history of kidney stones but presented with abdominal pain, nausea and vomiting to the [place] ER and was found to have an impacted kidney stone with hydronephrosis. She currently is having nausea and pain, and we will go ahead and give her some symptomatic medication. She is maintained on Rocephin for Pyelonephritis on CT scan and she will likely have a procedure by Dr. Kasper. Subjective/Events-last exam Pt had been doing well but now she is writhing in pain with left flank issue Conferred with Dr. Kasper, he really doesn't have anything to add and we talked about her CT scan and her procedure Spoke with Dr. Hernadez and he will take a look at her but she had been without any problems or pain or nausea and vomiting this morning when he checked in on her Pt does have some emotional problems will start her back in on her Effexor Review of Systems General: Fatigue, Malaise Gastrointestinal: Nausea, Vomiting, Abdominal Pain Objective Exam Vital Signs Vital Signs Date Time Temp Pulse Resp B/P (MAP) Pulse Ox O2 Delivery O2 Flow Rate FiO2 02/03/20 19:07 37.1 91 18 159/95 (116) 97 Room Air 02/02/20 13:15 3 Capillary Refill : Less Than 3 SecondsLess Than 3 Seconds General Appearance: WD/WN, Anxious, Chronically ill, Moderate Distress Respiratory: Chest Non Tender, Lungs Clear, Normal Breath Sounds, No Accessory Muscle Use, No Respiratory Distress Cardiovascular: Regular Rate, Rhythm, No Edema, No Gallop, No JVD, No Murmur, Normal Peripheral Pulses Neurologic/Psychiatric: Alert, Oriented x3, No Motor/Sensory Deficits, Normal Mood/Affect Results/Procedures Lab Laboratory Tests 02/03/20 05:34 Patient resulted labs reviewed. Assessment/Plan Assessment and Plan Assess & Plan/Chief Complaint Assessment: Renal colic Impacted kidney stone s/p stent placement Nausea and vomiting Leukocytosis Pyelonephritis on CT scan Fever Plan: Urology consultation appreciated IV antibiotics Pain control Anti-emetics Hold discharge Dr. Hernadez will assess due to continued pain Conferred with Dr. Kasper Diagnosis/Problems Diagnosis/Problems (1) Renal colic (2) Kidney stone (3) Hydronephrosis (4) Abdominal pain Status: Acute (5) Nausea and vomiting Status: Acute Clinical Quality Measures DVT/VTE Risk/Contraindication: Risk Factor Score Per Nursin RFS Level Per Nursing on Admit: 2=Moderate Contraindications-Mechi: Other *list below* Other: lOVENOX CONTRAINDICATED DUE TO PROCEDURE TOMORROW CLAUDIO CAMARGO DO Feb 03, 2020 20:44
[2020-02-04] VITALS: BP 165/88
[2020-02-04] MEDS: diphenhydrAMINE 50 MG/ML INJ (BENADRYL) IVP PRN (00:17)
[2020-02-04] MEDS: HYDROmorphone 2 MG/ML VIAL (DILAUDID) IVP PRN ×6 (00:17→22:06)
--- NOTE | 2020-02-04 00:50 | NUR ---
PT SATING 88-89% ON ROOM AIR. O2 APPLIED PER NASAL CANNULA AT 2L AT THIS TIME. SATS INCREASED TO 91-92%. WILL CONTINUE TO MONITOR.
[2020-02-04 04:00] VITALS: BP 165/88
--- NOTE | 2020-02-04 04:00 | NUR ---
PT SATING 95% ON ROOM AIR AT THIS TIME. NASAL CANNULA REMOVED. WILL CONTINUE TO MONITOR.
[2020-02-04] MEDS: ALPRAZolam 0.25 MG (XANAX) TAB PO PRN ×2 (04:41→18:40)
[2020-02-04] MEDS: NS IV 1000 ML 1,000 ML IV SCH (04:41)
[2020-02-04] MEDS: fentaNYL INJECTION 100 MCG/2 ML AMP IVP PRN (04:42)
[2020-02-04] MEDS: VENlafaxine XR 75 MG (EFFEXOR XR) CAP PO SCH (04:42)
[2020-02-04] MEDS: SUCRALFATE 1 GM (CARAFATE) TAB PO SCH ×4 (04:42→20:24)
[2020-02-04 06:14] LABS: BASOPHILS % (AUTO) 0 % (0-10); EOSINOPHILS % (AUTO) 0 % (0-10); HEMATOCRIT 32 % (35-52); HEMOGLOBIN 10.9 G/DL (11.5-16.0); LYMPHOCYTES # (AUTO) 1.8 X 10^3 (1.0-4.0); LYMPHOCYTES % (AUTO) 17 % (12-44); MEAN CORPUSCULAR HEMOGLOBIN 29 PG (25-34); MEAN CORPUSCULAR HGB CONC 34 G/DL (32-36); MEAN CORPUSCULAR VOLUME 86 FL (80-99); MEAN PLATELET VOLUME 10.5 FL (7.4-10.4); MONOCYTES # (AUTO) 0.9 X 10^3 (0.0-1.0); MONOCYTES % (AUTO) 8 % (0-12); NEUTROPHILS # (AUTO) 7.8 X 10^3 (1.8-7.8); NEUTROPHILS % (AUTO) 74 % (42-75); PLATELET COUNT 220 10^3/uL (130-400); RED CELL DISTRIBUTION WIDTH 13.4 % (10.0-14.5); WHITE BLOOD COUNT 10.6 10^3/uL (4.3-11.0)
[2020-02-04 06:16] LABS: ALBUMIN 3.6 GM/DL (3.2-4.5); CHLORIDE 101 MMOL/L (98-107)
[2020-02-04 06:17] LABS: SODIUM 135 MMOL/L (135-145)
[2020-02-04] MEDS: PROMETHAZINE INJ 25 MG/ML (PHENERGAN) AMP IM PRN (06:17)
[2020-02-04 06:18] LABS: CALCIUM 8.3 MG/DL (8.5-10.1)
[2020-02-04 06:19] LABS: GLUCOSE 99 MG/DL (70-105); TOTAL PROTEIN 6.1 GM/DL (6.4-8.2)
[2020-02-04 06:20] LABS: CARBON DIOXIDE 23 MMOL/L (21-32)
[2020-02-04 06:21] LABS: BILIRUBIN,TOTAL 0.5 MG/DL (0.1-1.0)
[2020-02-04 06:22] LABS: ALKALINE PHOSPHATASE 83 U/L (40-136)
[2020-02-04 06:23] LABS: CREATININE SERUM 0.72 MG/DL (0.60-1.30); GFR ESTIMATED > 60
[2020-02-04 06:24] LABS: BUN/CREATININE RATIO 10
[2020-02-04 06:25] LABS: ALANINE AMINOTRANSFERASE 64 U/L (0-55)
[2020-02-04] MEDS ORDERED: VENlafaxine XR 75 MG (EFFEXOR XR) CAP PO SCH (07:00)
[2020-02-04 08:24] VITALS: BP 116/74
[2020-02-04] MEDS: PANTOPRAZOLE 40 MG (PROTONIX) VIAL IV SCH (09:27)
--- NOTE | 2020-02-04 09:48 | Progress Note - Urology ---
Progress Note-Urology Progress Notes/Assess & Plan Progress/Assessment & Plan FEELING BETTER, STARTED ON CLEAR LIQUIDS Final Diagnosis LT URETERAL STONE RAJI BETTENCOURT MD Feb 04, 2020 09:48
--- NOTE | 2020-02-04 09:54 | Progress Note - Hospitalist ---
Subjective HPI/CC On Admission Date Seen by Provider: Feb 04, 2020 Time Seen by Provider: 09:30 CC: Impacted kidney stone HPI: This is a 59yoWF clinic Pt of [facility] in [place] who has no history of kidney stones but presented with abdominal pain, nausea and vomiting to the [place] ER and was found to have an impacted kidney stone with hydronephrosis. She currently is having nausea and pain, and we will go ahead and give her some symptomatic medication. She is maintained on Rocephin for Pyelonephritis on CT scan and she will likely have a procedure by Dr. Kasper. Subjective/Events-last exam Patient is sleeping. She does not have any pain currently. She has not had any further nausea and vomiting. She tolerated having the stent placed without problems. She is afebrile and her white count is down to normal. Review of Systems General: Fatigue Objective Exam Vital Signs Vital Signs Date Time Temp Pulse Resp B/P (MAP) Pulse Ox O2 Delivery O2 Flow Rate FiO2 02/04/20 08:24 36.2 101 16 116/74 (88) 93 Room Air 02/04/20 00:00 2.00 Capillary Refill : Less Than 3 SecondsLess Than 3 Seconds General Appearance: No Apparent Distress, WD/WN Neck: Non Tender Respiratory: Lungs Clear, Normal Breath Sounds, No Accessory Muscle Use, No Respiratory Distress Cardiovascular: Regular Rate, Rhythm, No Gallop, No JVD, No Murmur, Normal Peripheral Pulses Gastrointestinal: Non Tender, Soft Extremity: No Pedal Edema Results/Procedures Lab Laboratory Tests 02/04/20 05:23 Patient resulted labs reviewed. Assessment/Plan Assessment and Plan Assess & Plan/Chief Complaint Renal colic-resolved Impacted kidney stone s/p stent placement Nausea and vomiting-resolved Leukocytosis-resolved Pyelonephritis on CT scan-on Rocephin Fever-resolved Possible discharge in the a.m. Clinical Quality Measures DVT/VTE Risk/Contraindication: Risk Factor Score Per Nursin RFS Level Per Nursing on Admit: 2=Moderate Contraindications-Mechi: Other *list below* Other: lOVENOX CONTRAINDICATED DUE TO PROCEDURE TOMORROW NOLAN BROOKS MD Feb 04, 2020 09:54
[2020-02-04] MEDS: ACETAMINOPHEN 325 MG TABLET PO PRN ×2 (11:06→18:40)
[2020-02-04] MEDS: ONDANSETRON 4 MG/2 ML (SDV) Z0FRAN IVP PRN ×2 (11:14→16:23)
[2020-02-04] MEDS: 1/2 NS W/KCL 20 MEQ/L 1,000 ML IV SCH ×2 (11:18→18:42)
--- NOTE | 2020-02-04 14:53 | Progress Note - Surgery ---
Subjective Date Seen by a Provider: Feb 04, 2020 Time Seen by a Provider: 09:10 Subjective/Events-last exam Patient without nausea and vomiting. States abdominal pain is currently gone. No new complaints. Denies n/v fever sweats chills shortness of breath or chest pain. Patient currently NPO and WBC normal today. Objective Exam Vital Signs Date Time Temp Pulse Resp B/P (MAP) Pulse Ox O2 Delivery O2 Flow Rate FiO2 02/04/20 08:24 36.2 101 16 116/74 (88) 93 Room Air 02/04/20 04:00 165/88 (113) 95 Room Air 02/04/20 00:00 37.4 91 14 165/88 (113) 91 Nasal Cannula 2.00 02/03/20 21:00 Room Air 02/03/20 19:07 37.1 91 18 159/95 (116) 97 Room Air 02/03/20 17:12 Room Air 02/03/20 16:00 37.1 88 18 173/103 (126) 95 Room Air I & O 02/04/20 07:00 Intake Total 1400 ml Balance 1400 ml Capillary Refill : Less Than 3 SecondsLess Than 3 Seconds General Appearance: No Apparent Distress, WD/WN HEENT: PERRL/EOMI, Normal ENT Inspection Neck: Non Tender Respiratory: Chest Non Tender, No Accessory Muscle Use, No Respiratory Distress Cardiovascular: Regular Rate, Rhythm, Normal Peripheral Pulses Gastrointestinal: non tender, soft; No guarding, No rebound Extremity: No Pedal Edema Neurologic/Psychiatric: Alert, Oriented x3, No Motor/Sensory Deficits, Normal Mood/Affect Skin: Normal Color, Warm/Dry Lymphatic: No Adenopathy Results Lab Laboratory Tests 02/04/20 05:23: White Blood Count 10.6, Red Blood Count 3.72L, Hemoglobin 10.9L, Hematocrit 32L, Mean Corpuscular Volume 86, Mean Corpuscular Hemoglobin 29, Mean Corpuscular Hemoglobin Concent 34, Red Cell Distribution Width 13.4, Platelet Count 220, Mean Platelet Volume 10.5H, Neutrophils (%) (Auto) 74, Lymphocytes (%) (Auto) 17, Monocytes (%) (Auto) 8, Eosinophils (%) (Auto) 0, Basophils (%) (Auto) 0, Neutrophils # (Auto) 7.8, Lymphocytes # (Auto) 1.8, Monocytes # (Auto) 0.9, Eosinophils # (Auto) 0.0, Basophils # (Auto) 0.0, Sodium Level 135, Potassium Level 3.0L, Chloride Level 101, Carbon Dioxide Level 23, Anion Gap 11, Blood Urea Nitrogen 7, Creatinine 0.72, Estimat Glomerular Filtration Rate > 60, BUN/Creatinine Ratio 10, Glucose Level 99, Calcium Level 8.3L, Corrected Calcium 8.6, Total Bilirubin 0.5, Aspartate Amino Transf (AST/SGOT) 43H, Alanine Aminotransferase (ALT/SGPT) 64H, Alkaline Phosphatase 83, Total Protein 6.1L, Albumin 3.6 Microbiology 02/02/20 MRSA Screen - Final, Complete MRSA not isolated 01/31/20 Urine Culture - Final, 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 Clinical Quality Measures DVT/VTE Risk/Contraindication: Risk Factor Score Per Nursin RFS Level Per Nursing on Admit: 2=Moderate Contraindications-Mechi: Other *list below* Other: lOVENOX CONTRAINDICATED DUE TO PROCEDURE TOMORROW COCO FARRAR DO Feb 04, 2020 14:53
[2020-02-04 16:23] VITALS: BP 129/77
[2020-02-04] MEDS: TAMSULOSIN 0.4 MG (FLOMAX) CAP PO SCH (17:16)
[2020-02-04] MEDS: METOCLOPRAMIDE INJ 10 MG/2 ML (REGLAN) IVP PRN (18:51)
[2020-02-04] MEDS ORDERED: WATER (STERILE) FOR INJECTION 10 ML ONE (20:17)
[2020-02-04] MEDS ORDERED: cefTRIAXone 1,000 MG IV (ROCEPHIN) VIAL ONE (20:17)
[2020-02-04] MEDS: cefTRIAXone 1,000 MG/SWFI 10 ML IV PUSH IV SCH ×2 (21:23)
[2020-02-04] MEDS: MELATONIN 3 MG TABLET PO PRN (22:10)
[2020-02-05 00:10] VITALS: BP 125/82
[2020-02-05] MEDS: HYDROmorphone 2 MG/ML VIAL (DILAUDID) IVP PRN ×2 (00:58→06:26)
[2020-02-05] MEDS: 1/2 NS W/KCL 20 MEQ/L 1,000 ML IV SCH (03:22)
[2020-02-05] MEDS: ACETAMINOPHEN 325 MG TABLET PO PRN (03:29)
[2020-02-05] MEDS: SUCRALFATE 1 GM (CARAFATE) TAB PO SCH ×4 (06:12→20:26)
[2020-02-05] MEDS: VENlafaxine XR 75 MG (EFFEXOR XR) CAP PO SCH (06:13)
[2020-02-05] MEDS: PANTOPRAZOLE 40 MG (PROTONIX) VIAL IV SCH (07:44)
[2020-02-05 08:06] VITALS: BP 146/86
[2020-02-05 09:22] LABS: BASOPHILS # (AUTO) 0.1 10^3/uL (0.0-0.1); BASOPHILS % (AUTO) 1 % (0-10); EOSINOPHILS # (AUTO) 0.4 10^3/uL (0.0-0.3); EOSINOPHILS % (AUTO) 5 % (0-10); HEMATOCRIT 31 % (35-52); HEMOGLOBIN 10.5 G/DL (11.5-16.0); LYMPHOCYTES % (AUTO) 23 % (12-44); MEAN CORPUSCULAR HEMOGLOBIN 30 PG (25-34); MEAN CORPUSCULAR HGB CONC 34 G/DL (32-36); MEAN CORPUSCULAR VOLUME 86 FL (80-99); MEAN PLATELET VOLUME 9.9 FL (7.4-10.4); MONOCYTES # (AUTO) 0.8 X 10^3 (0.0-1.0); MONOCYTES % (AUTO) 10 % (0-12); NEUTROPHILS # (AUTO) 5.3 X 10^3 (1.8-7.8); NEUTROPHILS % (AUTO) 62 % (42-75); PLATELET COUNT 219 10^3/uL (130-400); RED CELL DISTRIBUTION WIDTH 13.3 % (10.0-14.5); WHITE BLOOD COUNT 8.6 10^3/uL (4.3-11.0)
[2020-02-05 09:30] LABS: CHLORIDE 104 MMOL/L (98-107); SODIUM 139 MMOL/L (135-145)
[2020-02-05 09:31] LABS: CALCIUM 8.1 MG/DL (8.5-10.1)
[2020-02-05 09:32] LABS: GLUCOSE 95 MG/DL (70-105)
[2020-02-05 09:33] LABS: CARBON DIOXIDE 26 MMOL/L (21-32)
[2020-02-05 09:36] LABS: CREATININE SERUM 0.77 MG/DL (0.60-1.30); GFR ESTIMATED > 60
[2020-02-05 09:37] LABS: BUN/CREATININE RATIO 6
--- NOTE | 2020-02-05 11:01 | Progress Note ---
Subjective Date Seen by a Provider: Feb 05, 2020 Time Seen by a Provider: 10:35 Subjective/Events-last exam Patient seen with Dr. Zaman. Patient reports doing well. Still has episodes of left side/flank pain but is better and tolerable. Tolerating clear liquid diet, but does report some nausea, but no vomiting. Ambulating well. Objective Exam Vital Signs Date Time Temp Pulse Resp B/P (MAP) Pulse Ox O2 Delivery O2 Flow Rate FiO2 02/05/20 09:33 Room Air 02/05/20 08:06 36.4 105 16 146/86 (106) 95 Room Air 02/05/20 00:10 36.4 96 16 125/82 (96) 94 Room Air 02/04/20 19:30 Room Air 02/04/20 16:23 37.0 89 18 129/77 (94) 96 Room Air I & O 02/05/20 07:00 Intake Total 5000 ml Output Total 2050 ml Balance 2950 ml Capillary Refill : Less Than 3 SecondsLess Than 3 Seconds General Appearance: No Apparent Distress, WD/WN Neck: Normal Inspection, Non Tender, Supple Respiratory: Normal Breath Sounds, No Accessory Muscle Use, No Respiratory Distress Cardiovascular: Regular Rate, Rhythm, No Edema Gastrointestinal: normal bowel sounds, soft, tenderness (LLQ/flank area) Extremity: Normal Capillary Refill, Normal Inspection, Normal Range of Motion Neurologic/Psychiatric: Alert, Oriented x3 Skin: Normal Color, Warm/Dry Results Lab Laboratory Tests 02/05/20 09:09: White Blood Count 8.6, Red Blood Count 3.55L, Hemoglobin 10.5L, Hematocrit 31L, Mean Corpuscular Volume 86, Mean Corpuscular Hemoglobin 30, Mean Corpuscular Hemoglobin Concent 34, Red Cell Distribution Width 13.3, Platelet Count 219, Mean Platelet Volume 9.9, Neutrophils (%) (Auto) 62, Lymphocytes (%) (Auto) 23, Monocytes (%) (Auto) 10, Eosinophils (%) (Auto) 5, Basophils (%) (Auto) 1, Neutrophils # (Auto) 5.3, Lymphocytes # (Auto) 2.0, Monocytes # (Auto) 0.8, Eosinophils # (Auto) 0.4H, Basophils # (Auto) 0.1, Sodium Level 139, Potassium Level 3.0L, Chloride Level 104, Carbon Dioxide Level 26, Anion Gap 9, Blood Urea Nitrogen 5L, Creatinine 0.77, Estimat Glomerular Filtration Rate > 60, BUN/Creatinine Ratio 6, Glucose Level 95, Calcium Level 8.1L Microbiology 02/02/20 MRSA Screen - Final, Complete MRSA not isolated 01/31/20 Urine Culture - Final, 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 Clinical Quality Measures DVT/VTE Risk/Contraindication: Risk Factor Score Per Nursin RFS Level Per Nursing on Admit: 2=Moderate Contraindications-Mechi: Other *list below* Other: lOVENOX CONTRAINDICATED DUE TO PROCEDURE TOMORROW VISHNU ROSARIO FIFTH HAND Feb 05, 2020 11:01
[2020-02-05] MEDS: HYDROcodone/APAP 7.5 MG/325 MG (LORTAB, LORCET PLUS) TABLET PO PRN ×2 (11:18→15:26)
--- NOTE | 2020-02-05 11:40 | Progress Note - Hospitalist ---
Subjective HPI/CC On Admission Date Seen by Provider: Feb 05, 2020 Time Seen by Provider: 11:00 CC: Impacted kidney stone HPI: This is a 59yoWF clinic Pt of [facility] in [place] who has no history of kidney stones but presented with abdominal pain, nausea and vomiting to the [place] ER and was found to have an impacted kidney stone with hydronephrosis. She currently is having nausea and pain, and we will go ahead and give her some symptomatic medication. She is maintained on Rocephin for Pyelonephritis on CT scan and she will likely have a procedure by Dr. Kasper. Subjective/Events-last exam Patient has less nausea but complains of contractions and some continued flank pain. Dr. Zaman is seen the patient for her reflux and some discomfort with swallowing. Patient's diet is being advanced today and she'll be encouraged to ambulate. Her IV came out. KUB did not show the 2 mm stone. Review of Systems Gastrointestinal: Nausea Objective Exam Vital Signs Vital Signs Date Time Temp Pulse Resp B/P (MAP) Pulse Ox O2 Delivery O2 Flow Rate FiO2 02/05/20 09:33 Room Air 02/05/20 08:06 36.4 105 16 146/86 (106) 95 02/04/20 00:00 2.00 Capillary Refill : Less Than 3 SecondsLess Than 3 Seconds General Appearance: No Apparent Distress, WD/WN HEENT: Normal ENT Inspection Neck: Normal Inspection, Non Tender, Supple Respiratory: Lungs Clear, Normal Breath Sounds, No Accessory Muscle Use, No Respiratory Distress Cardiovascular: Regular Rate, Rhythm, No Gallop, No Murmur, Normal Peripheral Pulses Gastrointestinal: Normal Bowel Sounds, Non Tender, Soft Rectal: Deferred Extremity: No Pedal Edema Neurologic/Psychiatric: Alert, Oriented x3, No Motor/Sensory Deficits, Normal Mood/Affect Skin: Normal Color, Warm/Dry Lymphatic: No Adenopathy Results/Procedures Lab Laboratory Tests 02/05/20 09:09 Patient resulted labs reviewed. Imaging: Reviewed Imaging Report Assessment/Plan Assessment and Plan Assess & Plan/Chief Complaint Renal colic-resolving Impacted kidney stone s/p stent placement Nausea and vomiting-improving Leukocytosis-resolved Pyelonephritis on CT scan-on Rocephin Fever-resolved Dysphagia-Dr. Zaman Possible discharge Clinical Quality Measures DVT/VTE Risk/Contraindication: Risk Factor Score Per Nursin RFS Level Per Nursing on Admit: 2=Moderate Contraindications-Mechi: Other *list below* Other: lOVENOX CONTRAINDICATED DUE TO PROCEDURE TOMORROW NOLAN BROOKS MD Feb 05, 2020 11:40
[2020-02-05 15:58] VITALS: BP 123/90
[2020-02-05] MEDS: TAMSULOSIN 0.4 MG (FLOMAX) CAP PO SCH (17:22)
[2020-02-05] MEDS: ONDANSETRON 4 MG/2 ML (SDV) Z0FRAN IVP PRN (18:12)
--- NOTE | 2020-02-05 18:55 | NUR ---
PT'S IV INFILTRATED AFTER RECEIVING 8 MG ZOFRAN IV BY [facility] INFUSER. 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 4 MG OF ZOFRAN PULLED FROM [facility] FOR CELIO BHAKTA FOR THIS PT.
[2020-02-05] MEDS: diphenhydrAMINE 50 MG/ML INJ (BENADRYL) IVP PRN (19:32)
[2020-02-05] MEDS: PROMETHAZINE INJ 25 MG/ML (PHENERGAN) AMP IM PRN (19:32)
[2020-02-05] MEDS: fentaNYL INJECTION 100 MCG/2 ML AMP IVP PRN (20:26)
[2020-02-05] MEDS: ALPRAZolam 0.25 MG (XANAX) TAB PO PRN (20:40)
[2020-02-05] MEDS ORDERED: cefTRIAXone 1,000 MG IV (ROCEPHIN) VIAL ONE (21:27)
[2020-02-05] MEDS ORDERED: WATER (STERILE) FOR INJECTION 10 ML ONE (21:28)
[2020-02-05] MEDS: METOCLOPRAMIDE INJ 10 MG/2 ML (REGLAN) IVP PRN (21:38)
[2020-02-05] MEDS: cefTRIAXone 1,000 MG/SWFI 10 ML IV PUSH IV SCH ×2 (21:38)
[2020-02-05] MEDS: MELATONIN 3 MG TABLET PO PRN (21:46)
[2020-02-06] MEDS: ONDANSETRON 4 MG/2 ML (SDV) Z0FRAN IVP PRN ×2 (00:10→06:32)
[2020-02-06] MEDS: fentaNYL INJECTION 100 MCG/2 ML AMP IVP PRN ×2 (00:11→04:20)
[2020-02-06] MEDS: ALPRAZolam 0.25 MG (XANAX) TAB PO PRN ×4 (00:30→19:43)
[2020-02-06 00:54] VITALS: BP 132/80
[2020-02-06] MEDS: PROMETHAZINE INJ 25 MG/ML (PHENERGAN) AMP IM PRN (01:47)
[2020-02-06] MEDS: diphenhydrAMINE 50 MG/ML INJ (BENADRYL) IVP PRN (01:50)
[2020-02-06] MEDS: ACETAMINOPHEN 325 MG TABLET PO PRN ×2 (02:21→16:02)
[2020-02-06] MEDS: METOCLOPRAMIDE INJ 10 MG/2 ML (REGLAN) IVP PRN (03:52)
[2020-02-06] MEDS: VENlafaxine XR 75 MG (EFFEXOR XR) CAP PO SCH (07:22)
[2020-02-06] MEDS: SUCRALFATE 1 GM (CARAFATE) TAB PO SCH ×4 (07:22→20:17)
[2020-02-06 08:10] VITALS: BP 156/88
[2020-02-06] MEDS: PANTOPRAZOLE 40 MG (PROTONIX) VIAL IV SCH ×3 (08:23→20:18)
[2020-02-06] MEDS: HYDROcodone/APAP 7.5 MG/325 MG (LORTAB, LORCET PLUS) TABLET PO PRN (09:27)
[2020-02-06] MEDS ORDERED: LORazepam 0.5 MG (ATIVAN) TABLET PO NR (09:45)
[2020-02-06] MEDS ORDERED: diphenhydrAMINE 25 MG TAB (BENADRYL) PO ONE (09:45)
--- NOTE | 2020-02-06 10:23 | Progress Note ---
Subjective Date Seen by a Provider: Feb 06, 2020 Time Seen by a Provider: 09:30 Subjective/Events-last exam Patient seen with Dr. Zaman. Patient reports that she threw up several times after eating and has been having nausea. Denied any hematemesis. Denies any heartburn/reflux but does report epigastric pain. Reports unable to sleep last night and would like something to try and get some sleep. Patient is very anxious during exam. Denies any other issues. Objective Exam Vital Signs Date Time Temp Pulse Resp B/P (MAP) Pulse Ox O2 Delivery O2 Flow Rate FiO2 02/06/20 08:28 Room Air 02/06/20 08:10 37.0 88 18 156/88 (110) 100 Room Air 02/06/20 00:54 37.1 94 18 132/80 (97) 96 Room Air 02/05/20 19:45 96 Room Air 02/05/20 15:58 37.3 78 18 123/90 (101) 96 Room Air I & O 02/06/20 07:00 Intake Total 4330 ml Output Total 3 ml Balance 4327 ml Capillary Refill : Less Than 3 SecondsLess Than 3 Seconds General Appearance: WD/WN, Anxious Neck: Full Range of Motion, Normal Inspection Respiratory: Normal Breath Sounds, No Accessory Muscle Use, No Respiratory Distress Cardiovascular: Regular Rate, Rhythm, No Edema Gastrointestinal: normal bowel sounds, soft, tenderness (Epigastric region and right upper abdominal quadrant) Extremity: Normal Inspection, Normal Range of Motion Neurologic/Psychiatric: Alert, Oriented x3 Skin: Normal Color, Warm/Dry Results Lab Microbiology 02/02/20 MRSA Screen - Final, Complete MRSA not isolated 01/31/20 Urine Culture - Final, Complete 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 Assessment/Plan Assessment/Plan Assess & Plan/Chief Complaint A 59 year old female with nausea and vomiting, left hydronephrosis with stone, left pyelonephritis, Hiatal herina VSS WBC 8.6 Did not tolerate DYS3 diet, will restart clear liquids Ambulating Continue pain medication as needed Continue antiemetics PRN Protonix BID IV and carafate Will give 0.5 Ativan for anxiety to see if it will help patient rest On antibiotics for pyelonephritis Hiatal hernia could have egd outpatient to further evaluate Clinical Quality Measures DVT/VTE Risk/Contraindication: Risk Factor Score Per Nursin RFS Level Per Nursing on Admit: 2=Moderate Contraindications-Mechi: Other *list below* Other: lOVENOX CONTRAINDICATED DUE TO PROCEDURE TOMORROW [employer] Feb 06, 2020 10:23
[2020-02-06] MEDS ORDERED: KETOROLAC 30 MG/ML VIAL IM ONE (11:00)
[2020-02-06] MEDS ORDERED: KETOROLAC 60 MG/2 ML VIAL IM ONE (11:00)
--- NOTE | 2020-02-06 11:05 | Progress Note - Hospitalist ---
Subjective HPI/CC On Admission Date Seen by Provider: Feb 06, 2020 Time Seen by Provider: 09:45 CC: Impacted kidney stone HPI: This is a 59yoWF clinic Pt of [facility] in [place] who has no history of kidney stones but presented with abdominal pain, nausea and vomiting to the [place] [facility] and was found to have an impacted kidney stone with hydronephrosis. She currently is having nausea and pain, and we will go ahead and give her some symptomatic medication. She is maintained on Rocephin for Pyelonephritis on CT scan and she will likely have a procedure by Dr. Kasper. Subjective/Events-last exam Patient has multiple complaints this morning. She says she's been up all night vomiting and is been vomiting ever since she was admitted here. She is also concerned that she's not been able to sleep and indeed many of her home medicines have not been restarted. Nursing staff notes that the vomiting is mostly bile stained and seems to be somewhat at will. She remains afebrile with a normal white count. Her physical exam is been unremarkable. Review of Systems Gastrointestinal: Nausea, Vomiting, Abdominal Pain Objective Exam Vital Signs Vital Signs Date Time Temp Pulse Resp B/P (MAP) Pulse Ox O2 Delivery O2 Flow Rate FiO2 02/06/20 08:28 Room Air 02/06/20 08:10 37.0 88 18 156/88 (110) 100 02/04/20 00:00 2.00 Capillary Refill : Less Than 3 SecondsLess Than 3 Seconds General Appearance: Mild Distress Neck: Normal Inspection, Non Tender, Supple Respiratory: Chest Non Tender, Lungs Clear, Normal Breath Sounds, No Accessory Muscle Use, No Respiratory Distress Cardiovascular: Regular Rate, Rhythm, No Gallop, No JVD, No Murmur, Normal Peripheral Pulses Gastrointestinal: Normal Bowel Sounds, No Pulsatile Mass, Soft, Tenderness (Diffusely without localization) Rectal: Deferred Back: Normal Inspection Extremity: No Pedal Edema Results/Procedures Lab Laboratory Tests 02/06/20 11:10 Patient resulted labs reviewed. Imaging: Reviewed Imaging Report Assessment/Plan Assessment and Plan Assess & Plan/Chief Complaint Renal colic-resolving- patient is having persistent nausea will put her back on her tramadol since this could be withdrawal peptic ulcer disease is another consideration and she has a hiatal hernia which may need to be examined before discharge. Impacted kidney stone s/p stent placement-CT today shows improving hydronephrosis Nausea and vomiting-uncertain etiology we will check an amylase lipase Leukocytosis-resolved Pyelonephritis on CT scan-on Rocephin Fever-resolved Dysphagia-Dr. Zaman-possible EGD, has a family history cancer the colon as well and might warrant a colonoscopy in addition ADHD for which she has been taking Adderall for some time History of cholecystectomy with operative cholangiogram that didn't show any stones in the common bile duct consideration could be given to a HIDA scan if she persists in her vomiting and her liver enzymes go up-will check pancreatic enzyme Pain out of proportion to exam findings of uncertain etiology Clinical Quality Measures DVT/VTE Risk/Contraindication: Risk Factor Score Per Nursin RFS Level Per Nursing on Admit: 2=Moderate Contraindications-Mechi: Other *list below* Other: lOVENOX CONTRAINDICATED DUE TO PROCEDURE TOMORROW NOLAN BROOKS MD Feb 06, 2020 11:05
[2020-02-06 11:35] LABS: ALANINE AMINOTRANSFERASE 40 U/L (0-55); ALBUMIN 3.9 GM/DL (3.2-4.5); ALKALINE PHOSPHATASE 93 U/L (40-136); AMYLASE 33 U/L (25-125); BILIRUBIN,TOTAL 0.6 MG/DL (0.1-1.0); BUN/CREATININE RATIO 7; CALCIUM 8.7 MG/DL (8.5-10.1); CARBON DIOXIDE 27 MMOL/L (21-32); CHLORIDE 91 MMOL/L (98-107); CREATININE SERUM 0.75 MG/DL (0.60-1.30); GFR ESTIMATED > 60; GLUCOSE 123 MG/DL (70-105); SODIUM 130 MMOL/L (135-145); TOTAL PROTEIN 6.6 GM/DL (6.4-8.2)
[2020-02-06 11:40] LABS: POTASSIUM 2.5 MMOL/L (3.6-5.0)
--- NOTE | 2020-02-06 11:43 | Diagnostic Imaging Report ---
EXAMINATION: CT Abdomen without intravenous contrast. TECHNIQUE: Multiple contiguous axial images were obtained through the abdomen without the administration of intravenous contrast. All CT scans use one or more of the following dose optimizing techniques: automated exposure control, MA and/or KvP adjustment based on a patient size and exam type, or iterative reconstruction. HISTORY: Renal stone, hydronephrosis, pain COMPARISON: 01/31/2020 FINDINGS: Limited views of the lower thorax show tiny pleural effusions and hiatal hernia. The liver is normal without focal lesion. There is no biliary ductal dilation. Gallbladder is surgically absent. Pancreas is normal. Spleen is normal. Adrenal glands are normal. Simple cyst is present in the right kidney. Left-sided nephroureteral stent is partially imaged. There is perinephric stranding on the left. The hydronephrosis has mildly improved. There is no hydronephrosis. Visualized bowel is normal in caliber without obstruction or inflammation. No free fluid or air. No abdominal lymphadenopathy. Aorta is normal in caliber without aneurysm. There are no suspicious osseus lesions. IMPRESSION: 1. Improvement in left-sided hydronephrosis status post nephroureteral stent placement. Dictated by: Dictated on workstation # [id number]
[2020-02-06] MEDS: NS W/KCL 40 MEQ/L 1,000 ML IV SCH (12:32)
[2020-02-06 15:14] VITALS: BP_SYST 179; BP_SYST 189; BP_DIAS 100; BP_DIAS 111
[2020-02-06] MEDS: MAGNESIUM 1 GM/100 ML IVPB 100 ML IV SCH ×2 (15:24→16:32)
[2020-02-06] MEDS: ONDANSETRON 4 MG (ZOFRAN) ORAL DISSOLVE TAB PO PRN (15:32)
[2020-02-06] MEDS: TAMSULOSIN 0.4 MG (FLOMAX) CAP PO SCH (17:27)
[2020-02-06] MEDS: PROMETHAZINE 25 MG (PHENERGAN) TAB PO PRN (19:44)
[2020-02-06] MEDS: cloNIDine 0.1 MG (CATAPRES) TAB PO SCH (20:17)
[2020-02-06] MEDS: lisINopril 10 MG (PRINIVIL) TABLET PO SCH (20:18)
[2020-02-06] MEDS: AMITRIPTYLINE 25 MG (ELAVIL) TAB PO SCH (20:18)
[2020-02-06] MEDS: cefTRIAXone FOR IV USE 1,000 MG in WATER (STERILE) FOR INJECTION 10 ML IV SCH (20:39)
[2020-02-07] VITALS: BP 96/78
[2020-02-07] MEDS: NS W/KCL 40 MEQ/L 1,000 ML IV SCH (03:56)
[2020-02-07 05:43] LABS: BASOPHILS # (AUTO) 0.1 10^3/uL (0.0-0.1); BASOPHILS % (AUTO) 1 % (0-10); EOSINOPHILS # (AUTO) 0.3 10^3/uL (0.0-0.3); EOSINOPHILS % (AUTO) 3 % (0-10); HEMATOCRIT 32 % (35-52); HEMOGLOBIN 11.4 G/DL (11.5-16.0); LYMPHOCYTES # (AUTO) 2.8 X 10^3 (1.0-4.0); LYMPHOCYTES % (AUTO) 30 % (12-44); MEAN CORPUSCULAR HEMOGLOBIN 29 PG (25-34); MEAN CORPUSCULAR HGB CONC 35 G/DL (32-36); MEAN CORPUSCULAR VOLUME 83 FL (80-99); MEAN PLATELET VOLUME 10.2 FL (7.4-10.4); MONOCYTES # (AUTO) 1.1 X 10^3 (0.0-1.0); MONOCYTES % (AUTO) 11 % (0-12); NEUTROPHILS # (AUTO) 5.3 X 10^3 (1.8-7.8); NEUTROPHILS % (AUTO) 55 % (42-75); PLATELET COUNT 252 10^3/uL (130-400); RED CELL DISTRIBUTION WIDTH 13.2 % (10.0-14.5); WHITE BLOOD COUNT 9.6 10^3/uL (4.3-11.0)
[2020-02-07 05:46] LABS: ALBUMIN 3.5 GM/DL (3.2-4.5)
[2020-02-07 05:47] LABS: CHLORIDE 98 MMOL/L (98-107); POTASSIUM 3.2 MMOL/L (3.6-5.0); SODIUM 137 MMOL/L (135-145)
[2020-02-07 05:48] LABS: CALCIUM 8.5 MG/DL (8.5-10.1)
[2020-02-07 05:49] LABS: GLUCOSE 106 MG/DL (70-105)
[2020-02-07 05:50] LABS: CARBON DIOXIDE 27 MMOL/L (21-32)
[2020-02-07 05:51] LABS: BILIRUBIN,TOTAL 0.5 MG/DL (0.1-1.0)
[2020-02-07 05:52] LABS: ALKALINE PHOSPHATASE 80 U/L (40-136)
[2020-02-07 05:53] LABS: CREATININE SERUM 0.82 MG/DL (0.60-1.30); GFR ESTIMATED > 60
[2020-02-07 05:54] LABS: BUN/CREATININE RATIO 10
[2020-02-07 05:56] LABS: ALANINE AMINOTRANSFERASE 27 U/L (0-55); MAGNESIUM 2.3 MG/DL (1.6-2.4)
[2020-02-07 06:17] LABS: ANISOCYTOSIS SLIGHT; ATYPICAL LYMPHOCYTES 2 %; EOSINOPHILS % (MANUAL) 2 %; HYPOCHROMASIA MODERATE; LYMPHOCYTES % (MANUAL) 33 %; METAMYELOCYTES % 1 %; MONOCYTES % (MANUAL) 11 %; NEUTROPHILS % (MANUAL) 50 %; REACTIVE LYMPHOCYTES 1 %
[2020-02-07] MEDS: SUCRALFATE 1 GM (CARAFATE) TAB PO SCH ×4 (06:53→20:12)
[2020-02-07] MEDS: VENlafaxine XR 75 MG (EFFEXOR XR) CAP PO SCH (06:53)
[2020-02-07 07:45] VITALS: BP 123/80
[2020-02-07] MEDS ORDERED: PANTOPRAZOLE 40 MG (PROTONIX) TAB PO SCH (09:00)
[2020-02-07] MEDS: PANTOPRAZOLE 40 MG (PROTONIX) VIAL IV SCH ×2 (09:11→20:11)
[2020-02-07] MEDS: ASPIRIN E.C. 81 MG (ECOTRIN) TAB PO SCH (09:11)
[2020-02-07] MEDS: ACETAMINOPHEN 325 MG TABLET PO PRN ×2 (09:11→15:04)
[2020-02-07] MEDS: POTASSIUM CL 10MEQ/50ML IVPB 50 ML IV SCH ×3 (09:12→11:34)
[2020-02-07] MEDS ORDERED: NS IV 500 ML 500 ML ONE (10:32)
--- NOTE | 2020-02-07 11:00 | Discharge Summary ---
Discharge Summary Hospital Course Hospital Course Date of Admission: Jan 31, 2020 at 23:17 Admission Diagnosis : Family Physician/Provider: Willa Gonzalez Date of Discharge: 02/07/20 Discharge Diagnosis: Nephrolithiasis Hydronephrosis Intractable nausea and vomiting Pyelonephritis s/p left ureteral stent Chronic pain Hospital Course: 59 yo female admitted with pyelonephritis, 2 mm left ureteral stone and hydronephrosis. Treated with 6 days of ceftriaxone, had left ureteral stent placed and repeat CT showed improvement of hydronephrosis. Continued to have abdominal pain and nausea and vomiting, Surgery consulted and suggested EGD and also may need colonoscopy (FH of colon cancer) outpatient. On PPI at home, added carafate and treated with reglan, ondansetron and promethazine. On day of d/c, she reported nausea/vomiting improved, tolerated bland diet and was ready for d/c with plan to follow up outpatient for scopes. Labs and Pending Lab Test: Laboratory Tests 02/06/20 11:10: Sodium Level 130L, Potassium Level 2.5*L, Chloride Level 91L, Carbon Dioxide Level 27, Anion Gap 12, Blood Urea Nitrogen 5L, Creatinine 0.75, Estimat Glomerular Filtration Rate > 60, BUN/Creatinine Ratio 7, Glucose Level 123H, Calcium Level 8.7, Corrected Calcium 8.8, Magnesium Level 1.4L, Total Bilirubin 0.6, Aspartate Amino Transf (AST/SGOT) 20, Alanine Aminotransferase (ALT/SGPT) 40, Alkaline Phosphatase 93, C-Reactive Protein High Sensitivity 1.92H, Total Protein 6.6, Albumin 3.9, Amylase Level 33 02/07/20 04:55: Sodium Level 137, Potassium Level 3.2L, Chloride Level 98, Carbon Dioxide Level 27, Anion Gap 12, Blood Urea Nitrogen 8, Creatinine 0.82, Estimat Glomerular Filtration Rate > 60, BUN/Creatinine Ratio 10, Glucose Level 106H, Calcium Level 8.5, Corrected Calcium 8.9, Magnesium Level 2.3, Total Bilirubin 0.5, Aspartate Amino Transf (AST/SGOT) 14, Alanine Aminotransferase (ALT/SGPT) 27, Alkaline Phosphatase 80, Total Protein 6.0L, Albumin 3.5, White Blood Count 9.6, Red Blood Count 3.88L, Hemoglobin 11.4L, Hematocrit 32L, Mean Corpuscular Volume 83, Mean Corpuscular Hemoglobin 29, Mean Corpuscular Hemoglobin Concent 35, Red Cell Distribution Width 13.2, Platelet Count 252, Mean Platelet Volume 10.2, Neutrophils (%) (Auto) 55, Lymphocytes (%) (Auto) 30, Monocytes (%) (Auto) 11, Eosinophils (%) (Auto) 3, Basophils (%) (Auto) 1, Neutrophils # (Auto) 5.3, Lymphocytes # (Auto) 2.8, Monocytes # (Auto) 1.1H, Eosinophils # (Auto) 0.3, Basophils # (Auto) 0.1, Neutrophils % (Manual) 50, Lymphocytes % (Manual) 33, Monocytes % (Manual) 11, Eosinophils % (Manual) 2, Metamyelocytes % 1, Atypical Lymphocytes 2, Reactive Lymphocytes 1, Hypochromasia MODERATE, Anisocytosis SLIGHT Microbiology 02/02/20 MRSA Screen - Final, Complete MRSA not isolated 01/31/20 Urine Culture - Final, Complete Mixed Bacterial Bouchra With Streptococcus mitis FDC Meds Active Reported Lansoprazole 30 Mg Capsule.dr 30 Mg PO HS Aspirin EC (Aspirin) 81 Mg Tablet.dr 81 Mg PO DAILY Iron (Ferrous Sulfate) 325 Mg Tablet 325 Mg PO HS Adderall Xr 30 mg Capsule (Dextroamphetamine/Amphetamine) 30 Mg Cap.er.24h 30 Mg PO DAILY Tramadol HCl 50 Mg Tablet 50-100 Mg PO Q4H PRN Venlafaxine HCl ER (Venlafaxine HCl) 150 Mg Cap.er.24h 300 Mg PO DAILY TAKES 2 (150MG) CAPS ONCE DAILY Clonidine HCl 0.1 Mg Tablet 0.3 Mg PO HS TAKES 3 (0.1MG) TABS AT BEDTIME Lisinopril 10 Mg Tablet 10 Mg PO HS Meloxicam 15 Mg Tablet 15 Mg PO DAILY Amitriptyline HCl 25 Mg Tablet 25 Mg PO HS Assessment/Pt DC Instructions Follow up with Willa Gonzalez on 02/13 at 11:30 am. Discharge Diet: Regular Diet Activity as Tolerated: Yes Discharge Physical Examination Allergies: Coded Allergies: No Known Drug Allergies (Unverified , 05/12/19) General Appearance: No Apparent Distress, WD/WN Respiratory: Lungs Clear, Normal Breath Sounds Cardiovascular: Regular Rate, Rhythm, No Murmur Gastrointestinal: Normal Bowel Sounds, Soft Skin: Normal Color, Warm/Dry Neurologic/Psychiatric: Alert, Normal Mood/Affect Copy Copies To 1: Willa Gonzalez APRN Clinical Quality Measures DVT/VTE Risk/Contraindication: Risk Factor Score Per Nursin RFS Level Per Nursing on Admit: 2=Moderate Contraindications-Mechi: Other *list below* Other: lOVENOX CONTRAINDICATED DUE TO PROCEDURE TOMORROW MAXI AMATO MD Feb 07, 2020 11:00
[2020-02-07] MEDS ORDERED: SUCR1TAB PO (11:19)
[2020-02-07] MEDS ORDERED: TMSL.4C PO (11:19)
[2020-02-07] MEDS ORDERED: PROM25TA14 PO (11:19)
[2020-02-07] MEDS ORDERED: ONDA4TAB11 PO (11:19)
[2020-02-07] MEDS ORDERED: PANT40TA3 PO (11:51)
[2020-02-07] MEDS: ONDANSETRON 4 MG (ZOFRAN) ORAL DISSOLVE TAB PO PRN (12:41)
--- NOTE | 2020-02-07 13:20 | NUR ---
"RD ASSESSMENT PMHx: HTN; Current - kidney stone PT INTERACTION: Pt was awake and pleasant during nutrition assessment. Pt states current appetite is poor and has been this way for about 1w. Note avg PO intake 50% x2d, per chart review. Pt states following a regular diet at home, and has no issues with chewing/swallowing food. Pt states some recent issues with nausea, vomiting, and diarrhea. Note last BM was 02/04, and pt currently on bowel regimen of coalce PRN; and miralax PRN, per chart review. Pt states unsure of recent wt changes. Note unable to determine recent wt hx, per chart review. ABNORMAL NUTRITION-RELATED LAB VALUES LOW: K 3.2; Pro 6.0 HIGH: glu 106 Est. kcal needs: 1375 kcal | 15 kcal/kg Est. Pro needs: 73 g Pro | 0.8 g Pro/kg PES STATEMENT: Inadequate oral intake (NI-2.1) related to loss of appetite | nausea | vomiting | diarrhea as evidenced by pt interview | avg PO intake 50% x2d INTERVENTION: Continue with current diet order of Clear Liquid diet. Pt may benefit from nutrition supplementation if PO intake declines. Will continue to follow and reassess as pt needs, intake, and status change. MONITOR/EVALUATE: PO Intake; Plan of Care; Hydration Status; Weight Status; Lab Values Chang Avendaño, , RD, LD"
[2020-02-07] MEDS: PROMETHAZINE 25 MG (PHENERGAN) TAB PO PRN ×2 (14:59→20:17)
[2020-02-07] MEDS: ALPRAZolam 0.25 MG (XANAX) TAB PO PRN ×2 (14:59→20:16)
[2020-02-07 15:59] VITALS: BP 167/92
[2020-02-07] MEDS ORDERED: KETOROLAC 60 MG/2 ML VIAL IM ONE (16:30)
[2020-02-07] MEDS ORDERED: KETOROLAC 30 MG/ML VIAL IM ONE (17:00)
[2020-02-07] MEDS: ONDANSETRON 4 MG/2 ML (SDV) Z0FRAN IVP PRN (17:10)
--- NOTE | 2020-02-07 17:34 | Progress Note - Surgery ---
Subjective Date Seen by a Provider: Feb 07, 2020 Time Seen by a Provider: 07:38 Subjective/Events-last exam Feeling better today. No nausea or vomiting. Tolerating liquids. Abdominal pain resolved at this time. Denies fever sweats chills shortness of breath or chest pain. Objective Exam Vital Signs Date Time Temp Pulse Resp B/P (MAP) Pulse Ox O2 Delivery O2 Flow Rate FiO2 02/07/20 15:59 36.7 83 16 167/92 (117) 99 Room Air 02/07/20 09:17 Room Air 02/07/20 07:45 36.9 93 18 123/80 (94) 98 Room Air 02/07/20 00:00 36.6 85 20 96/78 (84) 93 Room Air 02/06/20 19:30 Room Air I & O 02/07/20 07:00 Intake Total 1710 ml Output Total 3 ml Balance 1707 ml Capillary Refill : Less Than 3 SecondsLess Than 3 Seconds General Appearance: No Apparent Distress, WD/WN HEENT: Normal ENT Inspection Neck: Normal Inspection, Non Tender, Supple Respiratory: Chest Non Tender, No Accessory Muscle Use, No Respiratory Distress Cardiovascular: Regular Rate, Rhythm, No Murmur Gastrointestinal: non tender, soft, no organomegaly Extremity: Normal Inspection, Non Tender, No Pedal Edema Neurologic/Psychiatric: Alert, Oriented x3, No Motor/Sensory Deficits, Normal Mood/Affect Skin: Normal Color, Warm/Dry Lymphatic: No Adenopathy Results Lab Laboratory Tests 02/07/20 04:55: White Blood Count 9.6, Red Blood Count 3.88L, Hemoglobin 11.4L, Hematocrit 32L, Mean Corpuscular Volume 83, Mean Corpuscular Hemoglobin 29, Mean Corpuscular Hemoglobin Concent 35, Red Cell Distribution Width 13.2, Platelet Count 252, Mean Platelet Volume 10.2, Neutrophils (%) (Auto) 55, Lymphocytes (%) (Auto) 30, Monocytes (%) (Auto) 11, Eosinophils (%) (Auto) 3, Basophils (%) (Auto) 1, Neutrophils # (Auto) 5.3, Lymphocytes # (Auto) 2.8, Monocytes # (Auto) 1.1H, Eosinophils # (Auto) 0.3, Basophils # (Auto) 0.1, Neutrophils % (Manual) 50, Lymphocytes % (Manual) 33, Monocytes % (Manual) 11, Eosinophils % (Manual) 2, M etamyelocytes % 1, Atypical Lymphocytes 2, Reactive Lymphocytes 1, Hypochromasia MODERATE, Anisocytosis SLIGHT, Sodium Level 137, Potassium Level 3.2L, Chloride Level 98, Carbon Dioxide Level 27, Anion Gap 12, Blood Urea Nitrogen 8, Cr eatinine 0.82, Estimat Glomerular Filtration Rate > 60, BUN/Creatinine Ratio 10, Glucose Level 106H, Calcium Level 8.5, Corrected Calcium 8.9, Magnesium Level 2.3, Total Bilirubin 0.5, Aspartate Amino Transf (AST/SGOT) 14, Alanine Ruggiero otransferase (ALT/SGPT) 27, Alkaline Phosphatase 80, Total Protein 6.0L, Albumin 3.5 Microbiology 02/02/20 MRSA Screen - Final, Complete MRSA not isolated 01/31/20 Urine Culture - Final, Complete 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 Assessment/Plan Assessment/Plan Assessment/Plan nausea and vomiting, left hydronephrosis with stone left pyelonephritis, Hiatal hernia family history of colon cancer n/v resolved at this time diet as tolerates protonix/carafate Hiatal hernia and family hx colon cancer could have egd/colonoscopy outpatient to further evaluate Clinical Quality Measures DVT/VTE Risk/Contraindication: Risk Factor Score Per Nursin RFS Level Per Nursing on Admit: 2=Moderate Contraindications-Mechi: Other *list below* Other: lOVENOX CONTRAINDICATED DUE TO PROCEDURE TOMORROW COCO FARRAR DO Feb 07, 2020 17:34
[2020-02-07] MEDS: TAMSULOSIN 0.4 MG (FLOMAX) CAP PO SCH (18:13)
[2020-02-07] MEDS ORDERED: ZOLPIDEM 5 MG (AMBIEN) TAB PO PRN (19:15)
[2020-02-07] MEDS: cloNIDine 0.1 MG (CATAPRES) TAB PO SCH (20:18)
[2020-02-07] MEDS: lisINopril 10 MG (PRINIVIL) TABLET PO SCH (20:19)
[2020-02-07] MEDS: AMITRIPTYLINE 25 MG (ELAVIL) TAB PO SCH (20:19)
[2020-02-07] MEDS: cefTRIAXone FOR IV USE 1,000 MG in WATER (STERILE) FOR INJECTION 10 ML IV SCH (20:36)
[2020-02-08] VITALS (8 sets, daily range): BP systolic 97–198; BP diastolic 2–99
[2020-02-08] MEDS: VENlafaxine XR 75 MG (EFFEXOR XR) CAP PO SCH (06:48)
[2020-02-08] MEDS: ACETAMINOPHEN 325 MG TABLET PO PRN ×2 (06:49→17:36)
[2020-02-08] MEDS: SUCRALFATE 1 GM (CARAFATE) TAB PO SCH ×4 (06:50→22:16)
[2020-02-08] MEDS: ASPIRIN E.C. 81 MG (ECOTRIN) TAB PO SCH ×2 (08:32→17:38)
[2020-02-08] MEDS: PANTOPRAZOLE 40 MG (PROTONIX) VIAL IV SCH ×2 (08:32→21:00)
[2020-02-08] MEDS: METOCLOPRAMIDE INJ 10 MG/2 ML (REGLAN) IVP SCH ×3 (09:31→21:01)
[2020-02-08 10:03] LABS: BUN/CREATININE RATIO 15; CALCIUM 9.2 MG/DL (8.5-10.1); CARBON DIOXIDE 27 MMOL/L (21-32); CHLORIDE 95 MMOL/L (98-107); GFR ESTIMATED > 60; GLUCOSE 96 MG/DL (70-105); SODIUM 133 MMOL/L (135-145)
--- NOTE | 2020-02-08 13:02 | Progress Note ---
Subjective Subjective/Events-last exam Pt was to d/c yesterday, but before that occurred, she started vomiting again. Has had emesis 6 times since yesterday and has epigastric pain after eating. Objective Exam Last Set of Vital Signs Vital Signs Date Time Temp Pulse Resp B/P (MAP) Pulse Ox O2 Delivery O2 Flow Rate FiO2 02/08/20 09:00 Room Air 02/08/20 08:00 36.6 71 20 104/62 (76) 96 02/04/20 00:00 2.00 Capillary Refill : Less Than 3 SecondsLess Than 3 Seconds I&O Intake and Output0 02/08/20 00:00 Intake Total 3460 ml Output Total 6 ml Balance 3454 ml Intake Oral 2460 ml IV Total 1000 ml Output Urine Total 6 ml # Voids 3 # Bowel Movements 1 # Emeses 6 General: Alert, No Acute Distress (appears uncomfortable) Lungs: Clear to Auscultation, Normal Air Movement Heart: Regular Rate, No Murmurs Abdomen: Normal Bowel Sounds, Soft, Other (diffuse mild ttp) Extremities: No Edema Neuro: Normal Speech Psych/Mental Status: Mental Status NL Results/Procedures Lab Laboratory Tests 02/08/20 09:34: Sodium Level 133L, Potassium Level 3.0L, Chloride Level 95L, Carbon Dioxide Level 27, Anion Gap 11, Blood Urea Nitrogen 12, Creatinine 0.80, Estimat Glomerular Filtration Rate > 60, BUN/Creatinine Ratio 15, Glucose Level 96, Calcium Level 9.2 Microbiology 02/02/20 MRSA Screen - Final, Complete MRSA not isolated 01/31/20 Urine Culture - Final, Complete 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 Assessment/Plan Assessment/Plan Assessment & Plan Nephrolithiasis- s/p ureteral stent with improvement noted on CT of hydron ephrosis Hydronephrosis- s/p ureteral stent with improvement noted on CT Intractable nausea and vomiting- unclear etiology, on promethazine, ondansetron, reglan, PPI and carafate. Will make Reglan scheduled, and discussed with Surgery will obtain EGD. Pyelonephritis- on ceftriaxone s/p left ureteral stent Chronic pain Clinical Quality Measures DVT/VTE Risk/Contraindication: Risk Factor Score Per Nursin RFS Level Per Nursing on Admit: 2=Moderate Contraindications-Mechi: Other *list below* Other: lOVENOX CONTRAINDICATED DUE TO PROCEDURE TOMORROW MAXI AMATO MD Feb 08, 2020 13:02
--- NOTE | 2020-02-08 13:46 | Progress Note - Surgery ---
Subjective Date Seen by a Provider: Feb 08, 2020 Time Seen by a Provider: 13:42 Subjective/Events-last exam Patient was feeling well yesterday and was planning for discharge home. She then began having nausea and vomiting. Still continues today, but she states now able to keep down liquids. Patient having epigastric abdominal pain and bloated feeling when she takes food in. States pain can be bad, but varies in intensity. Not having luq/back pain now. Denies fever sweats chills shortness of breath or chest pain. Objective Exam Vital Signs Date Time Temp Pulse Resp B/P (MAP) Pulse Ox O2 Delivery O2 Flow Rate FiO2 02/08/20 09:00 Room Air 02/08/20 08:00 36.6 71 20 104/62 (76) 96 Room Air 02/08/20 00:20 36.2 68 14 97/63 (74) 97 Room Air 02/07/20 19:45 Room Air 02/07/20 15:59 36.7 83 16 167/92 (117) 99 Room Air I & O 02/08/20 07:00 Intake Total 2260 ml Output Total 3 ml Balance 2257 ml Capillary Refill : Less Than 3 SecondsLess Than 3 Seconds General Appearance: No Apparent Distress, WD/WN HEENT: Normal ENT Inspection Neck: Normal Inspection, Non Tender, Supple Respiratory: Chest Non Tender, No Accessory Muscle Use, No Respiratory Distress Cardiovascular: Regular Rate, Rhythm, No Murmur Gastrointestinal: soft, no organomegaly, tenderness (epigastric) Extremity: Normal Inspection, Non Tender, No Pedal Edema Neurologic/Psychiatric: Alert, Oriented x3, No Motor/Sensory Deficits, Normal Mood/Affect Skin: Normal Color, Warm/Dry Lymphatic: No Adenopathy Results Lab Laboratory Tests 02/08/20 09:34: Sodium Level 133L, Potassium Level 3.0L, Chloride Level 95L, Carbon Dioxide Level 27, Anion Gap 11, Blood Urea Nitrogen 12, Creatinine 0.80, Estimat Glomerular Filtration Rate > 60, BUN/Creatinine Ratio 15, Glucose Level 96, Calcium Level 9.2 Microbiology 02/02/20 MRSA Screen - Final, Complete MRSA not isolated 01/31/20 Urine Culture - Final, Complete 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 Assessment/Plan Assessment/Plan Assessment/Plan nausea and vomiting, left hydronephrosis with stone left pyelonephritis, Hiatal hernia family history of colon cancer n/v still having today. discussed with Dr. Inman, will plan EGD today- obtain consent she understands risks and benefits. NPO protonix/carafate family hx colon cancer to have colonoscopy outpatient Clinical Quality Measures DVT/VTE Risk/Contraindication: Risk Factor Score Per Nursin RFS Level Per Nursing on Admit: 2=Moderate Contraindications-Mechi: Other *list below* Other: lOVENOX CONTRAINDICATED DUE TO PROCEDURE TOMORROW COCO FARRAR DO Feb 08, 2020 13:46
[2020-02-08] MEDS ORDERED: LACTATED RINGERS 1,000 ML IV PRN ×2 (13:53→14:15)
[2020-02-08] MEDS ORDERED: PROPOFOL INJECTION 50 ML IV ONE (13:54)
[2020-02-08] MEDS ORDERED: MIDAZOLAM 2 MG/2 ML (VERSED) VIAL ONE (13:54)
[2020-02-08] MEDS ORDERED: LACTATED RINGERS 1,000 ML IV ONE (13:58)
[2020-02-08] MEDS ORDERED: HURRICAINE EXT TUBE (BENZOCAINE) XX PRN (14:15)
--- NOTE | 2020-02-08 14:42 | Progress Note-Post Operative ---
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
[2020-02-08] MEDS ORDERED: ONDANSETRON 4 MG/2 ML (SDV) Z0FRAN ONE (14:43)
--- NOTE | 2020-02-08 14:55 | Anesthesia-General Post-Op ---
MAC Patient Condition Mental Status/LOC: Same as Preop Cardiovascular: Satisfactory Nausea/Vomiting: Absent Respiratory: Satisfactory Pain: Controlled Complications: Absent Post Op Complications Complications None Follow Up Care/Instructions Patient Instructions None needed. Anesthesiology Discharge Order Discharge Order Patient is doing well, no complaints, stable vital signs, no apparent adverse anesthesia problems. No complications reported per nursing. EZEKIEL CHARLES CRNA Feb 08, 2020 14:55
[2020-02-08] MEDS: NS IV 500 ML 500 ML IV SCH (15:20)
[2020-02-08] MEDS: POTASSIUM CL 10MEQ/50ML IVPB 50 ML IV SCH ×4 (15:22→18:50)
--- NOTE | 2020-02-08 15:35 | NUR ---
Complaint of aching pain in center of chest at this time. patient had difficulty explaining chest pain to this RN in details but stated the pain only lasted a few seconds and was gone. Manual BP of 152/92. doctor notified
[2020-02-08] MEDS: ALPRAZolam 0.25 MG (XANAX) TAB PO PRN (15:46)
[2020-02-08] MEDS: ONDANSETRON 4 MG/2 ML (SDV) Z0FRAN IVP PRN (16:30)
--- NOTE | 2020-02-08 17:12 | NUR ---
patient and patient's sister stated that since we aren't treating her nausea/vomiting at this time that we need to treat her for pain management instead. This RN stated that patient is being treated for nausea/vomiting and listed all the medications patient is receiving because of this. patients sister stated she is a nurse as well and all the nausea medications she is receiving is what is given to drug seekers and explained that patient was not one and should be receiving high dose IV pain medication. This RN also explained to family member that was not the case. it was also explained that patient received an EGD and CT scan to figure out the cause of her nausea/ vomiting with no luck. family asked what the next steps in care are. patient was asked by this RN if she recalled her conversation with Doctor Storm earlier this morning regarding possible next steps in care and the possibility of having to seek a GI specialist. patient stated "yes, nobody cares about me here." patient ended the conversation stating she should be receiving in increased dose of IV pain medication at this time and would like her night time medication to go to sleep. night time medication was not given at this time Storm notified of patient conversation and ordered morphine 2mg Q4 PRN(for pain) and ativan .5 TID PRN (for anxiety/nausea vomiting). also orders to DC Xanax at this time
[2020-02-08] MEDS ORDERED: morphine INJ 4 MG/ML 1 ML (VIAL/SYRINGE) IVP PRN (17:30)
[2020-02-08] MEDS: TAMSULOSIN 0.4 MG (FLOMAX) CAP PO SCH (17:35)
[2020-02-08] MEDS: PROMETHAZINE 25 MG (PHENERGAN) TAB PO PRN (17:35)
--- NOTE | 2020-02-08 19:01 | OPERATIVE REPORT ---
DATE OF SERVICE: 02/08/2020 PREOPERATIVE DIAGNOSES: Hiatal hernia, nausea and vomiting. POSTOPERATIVE DIAGNOSES: Hiatal hernia, reflux esophagitis. PROCEDURE: EGD with biopsies. SURGEON: Coco Hernadez DO ANESTHESIA: Per STAFF NUC[employer] OFFICER. ESTIMATED BLOOD LOSS: None. COMPLICATIONS: None. SPECIMENS: Antrum and GE junction. INDICATIONS: The patient is a 59-year-old female who was admitted with left kidney stone, pyelonephritis. She underwent stent placement. The patient has been treated for pyelonephritis with antibiotics. The patient has continued to have nausea and vomiting. She on CT scan has hiatal hernia. It has been requested that I perform an EGD for further evaluation. She understands risks and benefits of procedure and wished to proceed with procedure. Consent was signed in the chart. DESCRIPTION OF PROCEDURE: The patient was taken to the endoscopy suite, placed in left lateral recumbent position. Timeout was performed. Scope was inserted in the mouth, down the esophagus, stomach and into the duodenum without difficulty. There were no polyps, masses or ulcerations within the duodenum. Scope was then slowly retracted back into the stomach where it was further insufflated. No polyps, masses or ulcerations within the stomach. Biopsy of the antrum was obtained. Scope was retroflexed noting a 2 to 3 cm hiatal hernia, no other pathology noted. Scope was returned to its normal position, slowly withdrawn to the distal esophagus, which had changes consistent with reflux esophagitis. Biopsy of the GE junction was obtained. Scope was then slowly retracted back to completely remove noting no other pathology. RECOMMENDATIONS: The patient to continue on current medications. The patient will follow up in the office to discuss biopsy results. The patient will need outpatient colonoscopy due to family history of colon cancer, which will be scheduled outpatient. Job ID: [id number] DocumentID: [id number] Dictated Date: 02/08/2020 14:44:34 Nurse Practitioner Physicians Assistant Date: 02/08/2020 19:00:53 Dictated By: COCO HERNADEZ DO
[2020-02-08] MEDS: LORazepam INJ 2 MG/ML (ATIVAN) VIAL IVP PRN (20:58)
[2020-02-08] MEDS: cefTRIAXone FOR IV USE 1,000 MG in WATER (STERILE) FOR INJECTION 10 ML IV SCH (21:03)
[2020-02-08] MEDS: cloNIDine 0.1 MG (CATAPRES) TAB PO SCH (22:16)
[2020-02-08] MEDS: AMITRIPTYLINE 25 MG (ELAVIL) TAB PO SCH (22:16)
[2020-02-08] MEDS: lisINopril 10 MG (PRINIVIL) TABLET PO SCH (22:16)
[2020-02-09 00:15] VITALS: BP 96/61
[2020-02-09] MEDS: METOCLOPRAMIDE INJ 10 MG/2 ML (REGLAN) IVP SCH ×2 (03:44→09:34)
[2020-02-09 05:50] LABS: CHLORIDE 98 MMOL/L (98-107); POTASSIUM 3.3 MMOL/L (3.6-5.0); SODIUM 134 MMOL/L (135-145)
[2020-02-09 05:52] LABS: CALCIUM 8.7 MG/DL (8.5-10.1); GLUCOSE 96 MG/DL (70-105)
[2020-02-09 05:54] LABS: CARBON DIOXIDE 24 MMOL/L (21-32)
[2020-02-09 05:56] LABS: GFR ESTIMATED > 60
[2020-02-09 05:57] LABS: BUN/CREATININE RATIO 13
[2020-02-09] MEDS: SUCRALFATE 1 GM (CARAFATE) TAB PO SCH ×2 (06:48→11:35)
[2020-02-09] MEDS: VENlafaxine XR 75 MG (EFFEXOR XR) CAP PO SCH (06:48)
[2020-02-09] MEDS: NS IV 500 ML 500 ML IV SCH (06:49)
[2020-02-09 08:00] VITALS: BP 97/64
[2020-02-09] MEDS: ASPIRIN E.C. 81 MG (ECOTRIN) TAB PO SCH (08:19)
[2020-02-09] MEDS: LORazepam INJ 2 MG/ML (ATIVAN) VIAL IVP PRN (08:19)
[2020-02-09] MEDS: PANTOPRAZOLE 40 MG (PROTONIX) VIAL IV SCH (08:19)
[2020-02-09] MEDS: POTASSIUM CL 10MEQ/50ML IVPB 50 ML IV SCH ×3 (08:29→11:36)
[2020-02-09] MEDS ORDERED: METO-310 PO (11:56)
--- NOTE | 2020-02-09 14:08 | NUR ---
"RD ASSESSMENT PMHx: HTN; PT INTERACTION: Pt was awake and pleasant during nutrition follow-up. Pt states she has been tolerating her Clear Liquid diet okay. Note avg PO intake <25% x3d, per chart review. Pt states some issues with nausea, vomiting, and constipation since last assessment. Note last BM was 02/07, and pt currently on bowel regimen of colace PRN; and miralax PRN, per chart review. ABNORMAL NUTRITION-RELATED LAB VALUES LOW: Na 134; K 3.3 HIGH: Est. kcal needs: 1375 kcal | 15 kcal/kg Est. Pro needs: 73 g Pro | 0.8 g Pro/kg PES STATEMENT: Inadequate oral intake (NI-2.1) related to loss of appetite | nausea | vomiting | constipation as evidenced by pt interview | avg PO intake <25% x3d INTERVENTION: Continue with current diet order of Clear Liquid diet. Add Ensure Clear (vary) to meals TID, for increased kcal intake. Provides 250 kcal and 8 g Pro per serving. Will continue to follow and reassess as pt needs, intake, and status change. MONITOR/EVALUATE: PO Intake; Plan of Care; Hydration Status; Weight Status; Lab Values Chang Avendaño, MS, RD, LD"
[2020-02-09 16:30] VITALS: BP 100/64
--- NOTE | 2020-02-09 16:30 | NUR ---
RICH BA demonstrates understanding of discharge instructions and accurately returns instructions upon questioning. Copy of Post-Discharge Instructions given to PT. RICH BA is able to manage continuing needs after discharge. Patients belongings returned to PT. Patient discharged from [facility] on 02/09/20 at 1630. RICH BA left floor via W/C, accompanied by STAFF AND FRIEND PER AUTO.
== END 2020-02-09 16:30 | disposition home or self-care (01) | DRG 661 ==
LOC: EDUNIT# 18:39 → ER FS 18:41 → CSD 23:17 → 4TH 02-01 14:30
PROVIDERS: ADMIT Internal Medicine; ATTEND Family Medicine
PROC: BT1BYZZ Fluoroscopy of Bladder and Urethra using Other Contrast (ICD-10-PCS; 2020-02-02)
PROC: 0T778DZ Dilation of Left Ureter with Intraluminal Device, Via Natural or Artificial Opening Endoscopic (ICD-10-PCS; principal; 2020-02-02 12:11)
PROC: 0DB48ZX Excision of Esophagogastric Junction, Via Natural or Artificial Opening Endoscopic, Diagnostic (ICD-10-PCS; 2020-02-08)
PROC: 0DB68ZX Excision of Stomach, Via Natural or Artificial Opening Endoscopic, Diagnostic (ICD-10-PCS; 2020-02-08)
DX: N13.6 Pyonephrosis (principal); K52.9 Noninfective gastroenteritis and colitis, unspecified; I10 Essential (primary) hypertension; M19.91 Primary osteoarthritis, unspecified site; F31.9 Bipolar disorder, unspecified; F41.9 Anxiety disorder, unspecified; Z20.828 Contact with and (suspected) exposure to other viral communicable diseases; K44.9 Diaphragmatic hernia without obstruction or gangrene; G89.29 Other chronic pain; K21.0 Gastro-esophageal reflux disease with esophagitis
CPT/HCPCS: 36415; 74018; 74019; 74150; 74176; 76000; 80048; 80053; 80306; 81000; 82150; 83690; 83735; 84484; 85007; 85025; 85027; 86141; 87077; 87081; 87088; 87635; 93005; 96361; 96374; 96375

== ENCOUNTER → 2020-07-05 | Outpatient (CLI) | payer OTHER ==
[~2020-07-05] MED LIST changes: +ASPI-1238 PO; -ASPI-983 PO; +CLN.1T PO; -CLON0.1T PO; +DICL75TA2 PO; +DICY20TA10 PO; +LANS30CA PO; +METO-310 PO; +ONDA4TAB11 PO; +PANT40TA52 PO; +PROM25TA14 PO; +SUCR1TAB PO; +TMSL.4C PO
--- NOTE | 2020-07-05 16:27 | Diagnostic Imaging Report ---
HISTORY: Left knee pain TECHNIQUE: 2 views of the left knee COMPARISON: None FINDINGS: No acute fracture is seen in the left knee. Alignment is normal. No significant joint effusion is seen. Joint spaces are preserved. IMPRESSION: 1. No acute osseous abnormalities seen in the left knee. Dictated by: Dictated on workstation # [id number]
--- NOTE | 2020-07-05 16:57 | Diagnostic Imaging Report ---
EXAM: LUMBAR SPINE 2 OR 3 VIEW INDICATION: Low back pain. COMPARISON: None. FINDINGS: Moderate to advanced right apex lumbar curvature. Advanced degenerative endplate changes at L2-L3. Vertebral body heights preserved. No fractures. Demineralization. Moderate facet arthropathy at L5-S1. The visualized pelvis is intact. Cholecystectomy clips. IMPRESSION: Moderate to advanced spondylotic and scoliotic changes as above. No acute radiographic findings. Dictated by: Dictated on workstation # [id number]
--- NOTE | 2020-07-05 17:36 | Diagnostic Imaging Report ---
INDICATION: Bilateral hip pain. EXAMINATION: Pelvis and bilateral hips. FINDINGS: There is no acute fracture, dislocation or avulsion. There is mild to moderate right and mild left hip osteoarthritic joint space narrowing. There are mild degenerative changes to the visualized lower lumbar spine. The SI joints and symphysis are unremarkable. IMPRESSION: Osteoarthritic changes with no acute appearing abnormality. Dictated by: Dictated on workstation # [id number]
== END ==
LOC: RAD FS 14:50
PROVIDERS: ATTEND Surgery
DX: Z02.71 Encounter for disability determination (principal); M47.816 Spondylosis without myelopathy or radiculopathy, lumbar region; M47.817 Spondylosis without myelopathy or radiculopathy, lumbosacral region; M16.0 Bilateral primary osteoarthritis of hip
CPT/HCPCS: 72100; 73521; 73560